=== PATIENT | female | born 1975 | race Caucasian/White ===

== ENCOUNTER 2024-09-11 08:57 | Emergency (ER) | payer OTHER, SELFPAY ==
[2024-09-11] VITALS (8 sets, daily range): BP systolic 101–143; BP diastolic 65–83; PULSE 57–88; RESP 11–19; TEMP 36.5–37.5; O2SAT 97–100; BMI 39.6
--- NOTE | 2024-09-11 08:58 | ECG_ITS ---
Test Reason : HEART RACING Blood Pressure : */* mmHG Vent. Rate : 164 BPM Atrial Rate : * BPM P-R Int : * ms QRS Dur : 78 ms QT Int : 260 ms P-R-T Axes : * 31 225 degrees QTcB Int : 429 ms Atrial fibrillation with rapid ventricular response Nonspecific ST and T wave abnormality Abnormal ECG No previous ECGs available Referred By: Rosie Edwards Electronically Signed By: ASIA RUANO
--- NOTE | 2024-09-11 09:07 | ED_ITS ---
HPI - General Adult General Chief complaint: Arrhythmia/Palpitations Stated complaint: Heart racing Time Seen by Provider: 09/11/24 09:37 Source: patient and family Mode of arrival: ambulatory Limitations: no limitations History of Present Illness ED Provider: DR. Caban HPI narrative: 49-year-old female otherwise healthy presented with 1 day of feeling palpitation, chest pounding, and difficulty breathing since early this morning patient had couple episodes of similar symptoms yesterday. Patient is healthy go to gym every other day do not smokes cigarettes, do not use drugs, not taking any anticoagulation, no history of any other comorbidity. Admitted to using edible marijuana only to help her to sleep, patient drink 2 coffees a day, declined any stress or anxiety. Family history father had a history of atrial fibrillation required cardioversion. Related Data Allergies Allergy/AdvReac Type Severity Reaction Status Date / Time No Known Allergies Allergy Verified 09/11/24 09:09 Review of Systems 2 Review of Systems: All other systems are reviewed and are negative Constitutional: Reports as per HPI and Reports no additional constitutional complaints Eyes: Reports as per HPI and Reports no additional eye complaints Reports system reviewed and no additional complaints, except as documented Cardiovascular: Reports as per HPI and Reports no additional cardiovascular complaints Respiratory: Reports as per HPI and Reports no additional respiratory complaints Gastrointestinal: Reports as per HPI and Reports no additional gastrointestinal complaints Genitourinary: Reports no additional female genitourinary complaints Musculoskeletal: Reports no additional musculoskeletal complaints Skin/Breast: Reports system reviewed and no additional complaints, except as docu Psychiatric: Reports no additional psychiatric complaints Endocrine: Reports no additional endocrine complaints Hematologic/Lymphatic: Reports no additional hematologic/lymphatic complaints Allergic/Immunologic: Reports no additional allergic/immunologic complaints Reports system reviewed and no additional complaints, except as documented and Reports Abnormal speech present [facility] Social History Social History Advance Directives: No Advance Directives Information Provided: No Do you have a plan to hurt others: No Plan Physical Exam ED Vital Signs: Vital Signs - 24 hr 09/11/24 09:06 09/11/24 09:38 Temperature 97.7 F Pulse Rate 88 87 Respiratory Rate 16 19 Blood Pressure 143/83 H 120/80 Pulse Oximetry 100 100 Oxygen Delivery Method Room Air Room Air BMI result Body Mass Index 39.6 Vital signs have been reviewed and appear to be correct. Blood pressure elevated. Heart rate normal. Respiratory rate normal. Temperature normal. Oxygen saturation normal. Appearance: Alert. Oriented X3. No acute distress. Head: Normal external exam. Normocephalic. Atraumatic. No Jensen signs noted. No raccoon eyes noted Eyes: PERRLA. EOMI. Conjunctiva and sclera normal. Eyelids normal. ENT: TM's Normal. Pharynx normal. Uvula midline. Moist mucous membranes. No trismus noted. No drooling noted. No muffled voice noted. Neck: Normal inspection. Neck supple. FROM. No adenopathy. Thyroid Normal. No meningeal signs. No neck mass noted. CVS: Normal heart rate and rhythm. Heart sound normal. No murmurs noted. Pulses normal throughout. Respiratory: No respiratory distress. Painless inspiration. Breath sounds normal. No wheezes/rales/rhonchi noted. Chest nontender. No accessory muscle usage noted or decreased air movement noted. Abdomen: Soft and nontender. Bowel sounds normal in all 4 quadrants. No distention noted. No organomegaly noted. No visible injury noted. Back: No CVA tenderness. Full range of motion noted. Skin: Skin warm and dry. Normal skin color. Normal skin turgor. No rashes/lesions/lacerations noted. Extremities: No lower extremity edema. Extremities exhibit normal range of motion. Extremities nontender. Neuro: Oriented X 3. Cranial nerve exam: II-XII are grossly intact No motor deficit. No sensory deficit. Reflexes normal. Course Course Course Narrative: RME performed by Rosie Edwards PA-C. Patient is a 49 year old assigned female at presenting to the emergency department with fluttering heart beast. Patient states over the last day she has had intermittent fluttering of her heart. Detailed physical exam and review of systems are deferred to the orthotic/prosthetic clinician. EKG, labs, imaging, and swabs ordered. Patient placed back in the waiting room pending room availability and results. Reevaluation(s) Reevaluation #1: Patient presented with rapid atrial fibrillation that is spontaneously converted into a normal sinus rhythm. Time: 09:40 Reevaluation #2: 49-year-old female presented initially with atrial fibrillation with rapid ventricular response in the 160s, that she spontaneously converted into normal sinus rhythm, no chest pain, no shortness of breath, unremarkable labs. Patient was instructed to avoid drinking coffee or hot chocolate. Patient was given Dr. Shultz information to follow-up as an outpatient. [id number] SCORE IS 0 no indication for anticoagulation. Time: 13:00 Medical Decision Making Differential Diagnosis Differential Diagnoses: The differential diagnosis associated with the presentation includes (Atrial fibrillation, SVT, electrolyte derangement, severe anemia, ACS.) Admission/Observation Consideration of admission/observation: Escalation of care including admission/observation considered Lab Data MDM Lab Attestation statement: I reviewed the patient's lab results. 09/11/24 09:33 09/11/24 09:33 Labs: Lab Results 09/11/24 Range/Units 09:33 WBC 6.7 (4.8-10.8) X10*3/uL RBC 4.73 (4.20-5.50) X10*6/uL Hgb 14.4 (12.0-16.0) g/dl Hct 43.9 (37.0-47.0) % MCV 92.8 (80.0-98.0) fL MCH 30.4 (27.0-33.0) pg MCHC 32.8 (31.0-35.0) g/dl RDW 13.0 (11.0-16.0) % Plt Count 279 (160-400) X10*3/uL MPV 10.4 (9.4-12.3) fL Immature Gran % (Auto) 0.4 (0.0-0.4) % Neut % (Auto) 45.2 (45-73) % Lymph % (Auto) 41.5 H (20-40) % Curry % (Auto) 7.4 (2-11) % Eos % (Auto) 4.8 H (0-4) % Baso % (Auto) 0.7 (0-2) % Lymph # (Auto) 2.8 (1.2-4.9) X10*3/uL Curry # (Auto) 0.5 (0.1-1.2) X10*3/uL Eos # (Auto) 0.3 (0.0-0.4) X10*3/uL Baso # (Auto) 0.1 (0.0-0.2) X10*3/uL Abs Immat Gran (auto) 0.03 (0.00-0.03) X10*3/uL Absolute Neuts (auto) 3.0 (2.0-8.3) x10*3/uL Absolute Nucleated RBC 0.000 (0.0-0.012) X10*3/uL Nucleated RBC % (auto) 0.0 (0.0-0.2) /100WBC PT 11.8 (10.9-12.4) SEC INR 1.0 (0.9-1.1) APTT 28.9 (26.0-36.8) SEC Sodium 143 (135-145) mmol/L Potassium 3.9 (3.3-5.1) mmol/L Chloride 107 (96-108) mmol/L Carbon Dioxide 26 (22-29) mmol/L Anion Gap 14 (12-20) BUN 13 (9-16) mg/dL Creatinine 0.84 (0.5-1.4) mg/dL Estim Creat Clear Calc 94.1 Estimated GFR > 60 Random Glucose 101 (60-115) mg/dL Calcium 9.2 (8.4-10.2) mg/dL Magnesium 1.9 (1.6-2.6) mg/dL Total Bilirubin 0.5 (0.0-1.0) mg/dL AST 20 (5-31) U/L ALT 14 (0-31) U/L Alkaline Phosphatase 57 (39-117) U/L Troponin I High Sens 10.4 (<3.5-17.0) ng/L Total Protein 7.3 (6.5-8.0) g/dL Albumin 3.8 (3.5-5.0) g/dL Influenza Type A (PCR) NEGATIVE (Negative) Influenza Type B (PCR) NEGATIVE (Negative) RSV RNA Qual (PCR) NEGATIVE (Negative) SARS-CoV-2 RNA (RT-PCR) NEGATIVE (Negative) Independent Interpretation I performed an independent interpretation of an: EKG (1. Atrial fibrillation with a rapid ventricular response, narrow complex QRS diffuse ST depression. ) Interpretation: EKG 2. Normal sinus rhythm at 83 beats per minutes, normal intervals, improvement of the abnormal ST-T changes. Discharge Plan Discharge Clinical Impression: Atrial fibrillation Patient Disposition: Still a Patient Instructions: A-fib (Atrial Fibrillation) (ED) Referrals: Surjit Zepeda MD [Primary Care Provider] - Kingston Shultz MD [Physician] - Print Language: Citizen [place]
--- NOTE | 2024-09-11 09:30 | ECG_ITS ---
Test Reason : TACHY Blood Pressure : */* mmHG Vent. Rate : 83 BPM Atrial Rate : 83 BPM P-R Int : 128 ms QRS Dur : 80 ms QT Int : 370 ms P-R-T Axes : 57 18 28 degrees QTcB Int : 434 ms Normal sinus rhythm Normal ECG When compared with ECG of 11-Sep-2024 09:01, Sinus rhythm has replaced Atrial fibrillation Vent. rate has decreased by [address] and T wave abnormality improved Referred By: Jose Guadalupe Caban Electronically Signed By: ASIA RUANO
[2024-09-11 09:38] LABS: MANUAL DIFF FLAG NO
[2024-09-11 09:55] LABS: Alanine Aminotransferase 14 U/L (0-31); Albumin Level 3.8 g/dL (3.5-5.0); Alkaline Phosphatase 57 U/L (39-117); Anion Gap 14 (12-20); Aspartate Amino Transferase 20 U/L (5-31); Bilirubin Total 0.5 mg/dL (0.0-1.0); Blood Urea Nitrogen 13 mg/dL (9-16); Calcium 9.2 mg/dL (8.4-10.2); Carbon Dioxide 26 mmol/L (22-29); Chloride 107 mmol/L (96-108); Creatinine Clr Calc Pharmacy 94.1; Estimated Glomerular Filt Rate > 60; Glucose Random 101 mg/dL (60-115); Magnesium 1.9 mg/dL (1.6-2.6); Potassium 3.9 mmol/L (3.3-5.1); Sodium 143 mmol/L (135-145); Total Protein 7.3 g/dL (6.5-8.0)
[2024-09-11 09:59] LABS: Basophils Absolute Auto 0.1 X10*3/uL (0.0-0.2); Basophils Percent Auto 0.7 % (0-2); Eosinophils Absolute Auto 0.3 X10*3/uL (0.0-0.4); Eosinophils Percent Auto 4.8 % (0-4); Hematocrit 43.9 % (37.0-47.0); Hemoglobin 14.4 g/dl (12.0-16.0); Imm Gran Abs Auto 0.03 X10*3/uL (0.00-0.03); Imm Gran Pct Auto 0.4 % (0.0-0.4); Lymphocytes Absolute Auto 2.8 X10*3/uL (1.2-4.9); Lymphocytes Percent Auto 41.5 % (20-40); Mean Corpuscular HGB Conc 32.8 g/dl (31.0-35.0); Mean Corpuscular Hemoglobin 30.4 pg (27.0-33.0); Mean Corpuscular Volume 92.8 fL (80.0-98.0); Mean Platelet Volume 10.4 fL (9.4-12.3); Monocytes Absolute Auto 0.5 X10*3/uL (0.1-1.2); Monocytes Percent Auto 7.4 % (2-11); Neutrophils Percent Auto 45.2 % (45-73); Platelet Count 279 X10*3/uL (160-400); Red Blood Count 4.73 X10*6/uL (4.20-5.50); White Blood Count 6.7 X10*3/uL (4.8-10.8)
[2024-09-11 10:02] LABS: Troponin-I High Sensitivity 10.4 ng/L (<3.5-17.0)
[2024-09-11 10:05] LABS: Prothrombin Time 11.8 SEC (10.9-12.4)
[2024-09-11 10:08] LABS: Partial Thromboplastin Time 28.9 SEC (26.0-36.8)
[2024-09-11 10:17] LABS: Influenza A PCR NEGATIVE (Negative); Influenza B PCR NEGATIVE (Negative); Resp Syncy Virus RNA Qual PCR NEGATIVE (Negative); SARS COV2 PCR INHOUSE NEGATIVE (Negative)
--- NOTE | 2024-09-11 11:56 | PC.NURSE ---
pt resting quietly on exam room stretcher- pt oob to BR, no complaints of distress with ambulation- pt returned to exam room placed on cardiac care nurse, HR 67 NSR. no c/o pain, call velarde within reach
[2024-09-11 13:16] LABS: Troponin-I High Sensitivity 12.1 ng/L (<3.5-17.0)
--- NOTE | 2024-09-11 16:27 | MHC.EDTECH ---
charted vitals by this cmt on wrong PT
== END 2024-09-11 18:11 | disposition home or self-care (01) ==
PROVIDERS: Physician Assistant Medical; Emergency Provider Emergency Medicine; PCP Family Medicine
DX: I48.91 Unspecified atrial fibrillation (principal); I49.9 Cardiac arrhythmia, unspecified; R00.2 Palpitations; R06.02 Shortness of breath; F12.90 Cannabis use, unspecified, uncomplicated; Z03.818 Encounter for observation for suspected exposure to other biological agents ruled out; Z79.899 Other long term (current) drug therapy
CPT/HCPCS: 0241U; 36415; 80053; 83735; 84484; 85025; 85610; 85730; 93005; 99283; 99285

== ENCOUNTER → 2024-09-11 08:58 | Outpatient (BNV) | payer OTHER, SELFPAY | PROVIDERS: Emergency Provider Emergency Medicine; PCP Family Medicine; Visit Provider Internal Medicine | DX: I48.91 Unspecified atrial fibrillation (principal); R00.0 Tachycardia, unspecified | CPT/HCPCS: 93010 ==

== ENCOUNTER 2024-09-30 13:20 | Outpatient (AMB) | payer OTHER, SELFPAY ==
[2024-09-30 13:27] VITALS: BP 140/80; PULSE 64; BMI 40.0
--- NOTE | 2024-09-30 13:27 | MHC.OFFVIS ---
Vital Signs 09/30/24 13:27 Height 5 ft 3 in Weight 225 lb 12.054 oz BMI 40.0 BP 140/80 H Blood Pressure Location Rt brachial Position Sitting Pulse 64 Pulse Source Pulse Oximeter Intake Visit Reasons: [employer] [facility] Followup AFIB Intake Note: Pt states feeling okay. No concerns Medical Office Technology Instructor Required: No Accompanied by: Self / Same As Patient Allergies No Known Allergies Allergy (Verified 09/11/24 09:09) Medication List - Last Reconciled 09/30/24 by Rick Raymond NP budesonide-formoterol 160-4.5 mcg/actuation (Symbicort) 2 puffs inhalation BID metoprolol tartrate 12.5 mg (1/2 x 25 mg) PO DAILY HPI Comments Details: This is a 49-year-old female patient presenting for an evaluation of a new onset AFib. Patient has history of asthma and obesity but no known coronary artery disease, ischemic heart disease, or cardiomyopathy. The patient was recently seen in the emergency room for after experiencing palpitations, chest pounding, difficulty breathing for a duration of 24 hours. She reports that a few hours before these symptoms began she also had some lightheadedness. The patient denies any smoking and uses alcohol occasionally. She admits to using edible marijuana for sleep but does not use any other recreational drugs. In the ER, she was diagnosed with AFib with a RVR but she spontaneously converted to normal sinus rhythm. Today, the patient reports feeling much better and has not experienced any recurrences of those symptoms. Patient does note that she has been having some chest pressure midsternal mostly in the evenings and at rest but none with exertion. She denies any exertional shortness of breath, chest pain, palpitations, dizziness, fatigue, orthopnea, PND, leg edema, presyncope, or syncope. She does note a family history of AFib and her father has had multiple cardioversions for this. The patient is active and works out 3 times a week engaging in HIIT exercise and reports no symptoms during or after these exercises. [facility] Family History Father HTN (hypertension) DM2 (diabetes mellitus, type 2) Heart problem Mother Myositis Social History Alcohol intake: current Alcohol intake frequency: holidays/special occasions only Patient Tobacco Use Status: Former Tobacco user Review of Systems Const Denies chills, Denies daytime sleepiness, Denies fatigue, Denies fever(s), Denies poor appetite, Denies snoring, Denies stops breathing during sleep, Denies weakness, Denies weight gain and Denies weight loss Eyes Denies loss of vision ENT Denies dizziness and Denies hearing loss Card Denies chest pain, Denies irregular heart rhythm, Denies claudication, Denies leg edema, Denies lightheadedness, Denies palpitations, Denies dyspnea on exertion and Denies orthopnea Resp Denies cough, Denies excessive phlegm production, Denies dyspnea on exertion, Denies snoring and Denies wheezing GI Denies abdominal pain, Denies hematochezia, Denies change in bowel habits, Denies nausea and Denies vomiting Denies urinary frequency and Denies dysuria Musc Denies arthralgias, Denies muscle weakness, Denies numbness and Denies other Skin/Breast Denies nail changes and Denies rash Neuro Denies Abnormal speech present, Denies dizziness, Denies loss of vision, Denies memory loss, Denies numbness and Denies weakness Psych Denies depression and Denies memory loss Endo Denies fatigue and Denies palpitations Fawad/Lymph Denies easy bruising Aller/Immun Denies wheezing Physical Exam Vital Signs: Last Vital Signs Pulse 64 09/30/24 13:27 BP 138/80 09/30/24 13:27 BMI result Body Mass Index 40.0 Const General: cooperative, healthy appearing, comfortable and no acute distress Orientation/consciousness: patient oriented x3 HEENT Head: Yes normal to inspection Neck Neck: Yes normal visual inspection, Yes trachea midline and Yes supple Chest Chest palpation & inspection: normal inspection of the chest Resp Effort & Inspection: normal respiratory effort Auscultation: clear to auscultation bilaterally, no crackles, no rales, no rhonchi and no wheezes Cardio Jugular venous distension: no JVD Palpation: normal PMI Rate: regular rate Rhythm: regular rhythm Heart sounds: S1 normal heart sound present, S2 normal heart sound present, no click, no gallops, no murmurs and no rubs Peripheral pulses: Peripheral pulses 2+ throughout GI Inspection: Yes normal to inspection Palpation (GI): Soft to palpation Auscultation: normal bowel sounds Skin General skin exam: no rashes or lesions noted Neuro General: patient oriented x3 Speech: No Abnormal speech present Extrem General: Yes normal to inspection, No no pedal edema and No calf tenderness Psych Appearance: grossly normal Mental Status: mental status grossly normal Speech and movement: Normal speech and movement present Office Procedures EKG Details: EKG today showed underlying normal sinus rhythm, rate 60 beats per minute, [place], [place]. [id number], Complete Assessment & Plan Assessment & Plan (1) Paroxysmal A-fib: Code(s): I48.0 - Paroxysmal atrial fibrillation Category: Medical (2) Atypical chest pain: Code(s): R07.89 - Other chest pain Category: Medical Plan EKG today was normal sinus rhythm. Blood pressure on the higher side. Ideally, blood pressure goal less than 130/80. Advised to continue monitoring at home and keeping a log. We will start patient on small dose of metoprolol for rate control as well as blood pressure. STOPBANG score of 3. We will get a sleep study test to rule out obstructive sleep apnea which could be a contributing factor for her AFib. We will also get a 3 day Holter monitor to assess for recurrence of AFib as well as the burden. Bob Vasc score of 0, therefore no anticoagulation needed at this time. For the atypical symptoms of chest pain, we will pursue a treadmill stress test to look for any ischemic changes. We will also get an echocardiogram to evaluate for underlying structural heart disease including potential decrease in heart function, wall motion abnormalities, valvular abnormalities. Advised heart healthy diet, regular exercise, losing weight, aggressive management of vascular risk factors, and limiting caffeinated beverages. Follow-up in the office after completion of these tests. In the interim, patient will call the office with any concerns or change in symptoms. This note was generated using voice recognition software. While every effort has been made to ensure accuracy and proper news analyst, there may be occasional errors that could affect the content or meaning of the described symptoms. Orders: Orders CA echo transthoracic complete Today I48.0 - Paroxysmal atrial fibrillation ECG 3 day holter monitor Today I48.0 - Paroxysmal atrial fibrillation AMB EKG-In Office Today I48.0 - Paroxysmal atrial fibrillation CA stress test Today R07.89 - Other chest pain RT home sleep study Today G47.33 - Obstructive sleep apnea (adult) (pediatric) Medications: New metoprolol tartrate 12.5 mg (1/2 x 25 mg) PO DAILY 90 tabs 1RF Coding Level of Care Code New Pt Level 4 (37319) Complex EM visit Add On G2211 Diagnoses Paroxysmal A-fib I48.0 Atypical chest pain R07.89 CPT Codes EKG - CPT: 41624-[id number], Complete ([id number]) Time Spent (min) 32 Comment Time spent in reviewing the chart, test results, assessment, counseling and documentation.
--- OUTSIDE RECORDS SUMMARY | 2024-09-30 14:55 | XMS_ITS | Data Portability ---
Author Organization [facility], [facility] Address [address] [place] [address] Care Team Providers Care Injection Molding Supervisor Name Role Phone [facility] LESLY WOODARD OTHER SAEED REYNA Recreation Superintendent NICOLE KAPLAN Primary Care Provider Assessment Encounter Date Assessment Date Assessment LastModified by Organization Details LastModified Time 11/12/2023 11/12/2023 Visit 3 of 8 Re-eval Due: 11/18/23 Next visit : Short Term Goals: In 4 weeks, patient will: 1. Reach into a high cabinet with right shoulder pain no greater than 3/10. 2. Don and doff a jacket with right shoulder pain no greater than 3/10. 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 Demonstrate pain free active, passive, and resisted motions of the right shoulder 2. Lift and carry 20 pounds without right shoulder pain. 4. Demonstrate independence with comprehensive HEP. Subjective : arm is about the same first thing in the morning is still excruciating it feels like a contracture and this muscle is just closing up Objective : -TTP R AC joint, coracoid process, pec minor, pec major near medial clavicle, brachialis, deltoid Therex : -reviewed HEP w/ pt, updated as below. -pec stretch w/ arm at 120 abd Neuromuscular Re-ed : Manual Therapy : -STM and gentle TPR R pec minor, pec major near medial clavicle, brachialis, deltoid -gentle CFM R deltoid near insertion, brachialis -GR I & II inferior glide R AC joint - pt reports pain, d/c -G-H inferior glide - relieves R pectoral pain, gradual increase in R UT pain Assessment : Patient continues to experience pain in her R shoulder, upper arm, and pectoral region; HEP has produced minimal effect thus far. Patient is concerned for bony injury despite atraumatic onset. Counseled pt that her symptoms may be calcific tendinopathy or pectoral strain. Requested x-ray from patient's PCP. Patient states that she will RTC if indicated by her PCP. Plan : follow up as needed Access Code: [email or web address] URL: [email or web address] Date: 11/12/2023 Prepared by: Marie Amanda'Tristen Exercises - Seated Shoulder Inferior Stephenson - 3 x daily - 7 x weekly - 1 sets - 3 reps - 15 hold - Isometric Shoulder Abduction at Wall - 3 x daily - 7 x weekly - 1 sets - 5 reps - 15 hold - Standing Isometric Shoulder External Rotation with Doorway - 3 x daily - 7 x weekly - 1 sets - 5 reps - 15 hold - Bicep Stretch at Counter - 3 x daily - 7 x weekly - 1 sets - 3 reps - 15 sec hold - Standing Shoulder and Trunk Flexion at Table - 1-3 x daily - 7 x weekly - 1 sets - 10 reps - 5 sec hold - Seated Shoulder External Rotation AAROM with Cane and Hand in Neutral - 1-3 x daily - 7 x weekly - 1 sets - 10 reps - 5 sec hold - Seated Shoulder External Rotation PROM on Table - 1-3 x daily - 7 x weekly - 1 sets - 10 reps - 5 sec hold - Doorway Pec Stretch at 120 Elevation with Arm Straight - 1-3 x daily - 7 x weekly - 1 sets - 3 reps - 15 hold [email or web address] Not available 11/13/2023 17:01:53 04/12/2024 04/12/2024 RTC 1 yr CEE or prn [email or web address] Not available 04/12/2024 10:43:05 Plan of Treatment Reminders Order Date Submit Date Provider Last Modified By Organization Details Last Modified Time Details Appointments Mammog yovany, Screen ing 2024 01:30P M [facility] Mammography Not available Not available Not available Lyubov ss Visit 30 2024 03:15P M Nicole Kaplan, DNP, AGRICULTURAL ADVISER-BC Not available Not available Not available Marianela robbins Eye Exam, 20 Min 2024 09:50A M Maritza Reyna, OD Not available Not available Not available Lab TSH, serum or plasma 2024 025 [facility], [address] [place] [address], [id number], 09/27/2024 12:33:45 T4, free, serum 2024 025 [facility], [address] [place] [address], [id number], 09/27/2024 12:33:44 erythr ocyte sedime ntatio n rate by agustina gren method 2023 024 [facility], [address] [place] [address], [id number], 09/27/2024 11:08:35 BRANDIN (antin uclear antibo dies) screen , ifa, serum 2023 024 [facility], [address] [place] [address], [id number], 09/30/2024 10:58:42 rf (rheum atoid factor ), igm, serum 2023 024 [facility], [address] [place] [address], [id number], 09/27/2024 08:03:00 Referral orthop joseluis shaw referr al - Right upper bicep severe pain and decrea sed ROM, rope like sensat ion in bicep , will get u/s- please eval and advise . Pain since Aug 272023 024 CAROLYN Castle DO Ms, [address] [place], [id number], 03/15/2024 09:59:26 Procedures colono scopy proced ure (PROC) - Please book the pt at [facility] gilmer Porrasit al as the patien t has an outsta nding balanc e. If the patien t has any questi ons please have them call [facility] rhona rodriguez dept. Thank you [email or web address] [facility], [address] [facility], [place], [address], 07/27/2024 09:51:10 Surgeries None record ed. Imaging MAMMO, screen ing, tomosy nthesi s, bilate ral - 2nd Look Consul t/Diag Mammo/ US Breast /Guide d Asp/Br east Bx/Cli p Placem ent, as clinic ally indica dc. 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 and anteri or mid and lower rib tender ness x2 weeks 2024 025 [facility] (Imaging), [address], [place], [id number], 07/26/2024 16:18:20 US, duplex , venous , upper extrem ity - RIGHT upper extrem ity, bicep rope like palpat ed tender ness 2023 024 [facility] (Imaging), [address], [place], [id number], 02/19/2024 14:21:23 Medication Orders predni sone 10 mg tablet 2024 025 [id number], [address] [facility], [place], [place], [id number], 09/12/2024 14:26:34 Patient TargetsNo targets recorded. Patient Instructions Encounter Date Encounter Id Patient Instructions Last Modified By Organization Details Last Modified Time 07/26/2024 [id number] After a discussi on of treatment options, which included consideration of best practices and patient preferences, the??above treatment plan and objectives were adopted New medication was discussed with patient including risks, benefits ,possible and expected side effects. Patient understands and is willing to begin medication as prescribed. [email or web address] Not available 07/26/2024 16:03:41 Reason for Referral Orthopedic Surgeon Referral for Pain in right arm Right upper bicep severe pain and decreased ROM, rope like sensation in bicep , will get u/s- please eval and advise. Pain since Aug Referring Physician: Nicole Kaplan, Family Medicine, Encounter Date: 02/19/2024 Results Created Date Observation Date Name Description Value Unit Range Abnormal Flag Note LastModifiedBy Organization Detail LastModifiedTime 02/19/20 24 02/19/2024 US, duple x, venou s, upper extre mity CLINIC AL HISTOR Y: Right arm pain TECHNI QUE: 2D sonogr aphy of the deep and select superf icial veins of the right upper extrem ity and neck perfor med withou t and with compre ssion where applic able. Color and spectr al Dopple r also perfor med. COMPAR PAULINO: None. FINDIN GS: Superf icial veins: The basili c and cephal ic veins are compre ssible and demons trate normal augmen tation . Wavefo crow are normal . Deep veins: Flow is noted in the brachi al, axilla ry, subcla vian and right web design intern al jugula r veins. The brachi al vein is compre ssible and demons trates normal augmen tation . Wavefo crow are normal . IMPRES LORI: No eviden ce of upper extrem ity deep vein thromb osis. No eviden ce of cephal ic or basili c vein thromb osis. Readin g Physic jag: Kenia Garcia ms [address] (Imaging) [address], [place], [address], 03/07/2024 08:25:27 07/26/19 25 07/26/2024 XR, ribs, unila teral CLINIC AL HISTOR Y: Pain. TECHNI QUE: At least [address] views of the right ribs are obtain ed. COMPAR PAULINO: None. FINDIN GS: No fractu re or soft tissue abnorm ality of the ribs is seen. The lungs and pleura l spaces are clear. IMPRES LORI: No acute bony abnorm ality. Readin g Physic jag: Zev Marcus [facility] (Imaging) [address] , [place], [id number], 07/27/2024 10:11:24 Result Notes None recorded. Problems Name Problem SNOMED Code Status Onset Date Resolution Date Notes Provider Name and Address Organization Details Recorded Time Pyelonep hritis 80736364 Active Analisa Thorne [place] null, [facility] 3 12:07:04 Conjunct ivitis 1430184 Active Val Craig NP [address] [place] [address], , [facility] 5 12:50:39 Elevated blood-pr essure reading without diagnosi s of hyperten lori 365708685 Active Tayla Blount NP [address] [place] [address], [id number], [facility] 4 12:02:01 Obesity 459830580 Active Tayla Blount NP [address] [place] [address], , [facility] 4 17:13:37 Seasonal allergic conjunct ivitis 088374065 Active Tayla Blount NP [address] [place] [address], , [facility] 4 11:35:38 Eczema 33515167 Active Talya Blount NP [address] [place] [address], , [facility] 4 11:35:38 Narrow angle 774469015 Active 2018 Maritza Reyna, OD [address] [place] [address], , [facility] 9 14:28:20 Atypical squamous cells of undeterm ined signific ance Active 2021, repeat 2024 Nicole Kaplan, DNP, AGRICULTURAL ADVISER-BC [address] [place] [address], [phone], [facility] 2 13:51:07 Atrial fibrilla tion 38353465 Active 2024 onset 09/11/24 DON LAO NP [address] [place] [address], [phone], [facility] 5 08:11:16 Mixed hyperlip idemia 284693949 Completed 05/26/2011 Not Available [facility] 3 03:09:12 Acute sinusiti s 08497769 Completed 05/26/2011 Not Available [facility] 3 03:09:12 Atopic dermatit is 07019421 Active Tayla Blount NP [address] [place], [address], [facility] 4 14:32:14 Contact dermatit is due to plants, except food Completed 06/08/2013 Not Available [facility] 3 02:02:49 Acute upper respirat ory infectio n 09347578 Completed 05/26/2011 Not Available [facility] 3 03:09:12 Conjunct ivitis 0119965 Completed 06/08/2013 Not Available [facility] 3 02:03:08 Conjunct ivitis 3902766 Completed 05/26/2011 Not Available [facility] 3 03:09:12 Influenz a 0627191 Completed 05/26/2011 Not Available [facility] 3 03:34:33 Acute asthma 818473633 Completed 07/18/2019 Susie Crockett PA-C [address] [place] [address], [address], [facility] 9 14:05:00 Acute bronchit is 12336887 Completed 06/08/2013 Not Available [facility] 3 02:01:35 Asthma 953828995 Active Tayla Blount NP [address] [place] [address], [phone], [facility] 4 17:13:37 Problem Notes None recorded. Procedures Surgical History Date Name Laterality Status Provider Name and Address Organization Details Recorded Time 024 Refraction completed Maritza Reyan OD [address] [place], [address], [facility] 04/12/2024 11:05:42 024 47435: Therapeutic Exercise completed Marie Yip, PT [address] [place], [address], [facility] 11/13/2023 17:01:57 024 48795: Manual Therapy completed Marie Yip, PT [address] [place], [address], [facility] 11/13/2023 17:02:03 024 06070: Therapeutic Exercise completed Marie Yip, PT [address] [place], [address], [facility] 10/27/2023 14:04:05 024 Smoking Cessation Counselling completed Marie Yip, PT [address] [place], [address], [facility] 10/19/2023 18:41:56 024 Physical Activity Counselling completed Marie Yip, PT [address] [place], [address], [facility] 10/19/2023 18:41:56 024 22796: PT Eval Low Complexity completed Marie Yip, PT [address] [place], [address], [facility] 10/19/2023 18:41:56 024 Treatment and Advice completed Marie Yip, PT [address] [place], [address], [facility] 10/20/2023 10:26:27 023 Gonioscopy completed Maritza Reyna, OD [address] [place], [address], [facility] 04/10/2023 10:30:18 023 Refraction completed Maritza Reyna, OD [address] [place], [address], [facility] 04/10/2023 09:31:53 022 Shave Biopsy AG completed Nicole Kaplan DNP, [address], [address], [facility] 04/22/2022 14:50:18 022 Alcohol use screening completed Nicole Kaplan DNP, [address], [address], [facility] 03/21/2022 14:33:23 022 Cardiovascular disease risk reduction counseling completed Nicole Kaplan DNP, [address], [address], [facility] 03/21/2022 14:33:27 019 Gonioscopy completed Maritza Reyna OD [address] [place] [address], [address], [facility] 11/30/2018 14:30:28 019 Refraction completed Bob Jorge [facility] 11/30/2018 14:05:35 019 Asthma Control Test (12 + years old) completed Karissa Braden [facility] 08/04/2018 09:12:27 019 POC Flu Testing completed Talisha Simms MA [facility] 07/25/2018 11:49:19 018 Asthma Control Test (12 + years old) completed Em Kapoor RN [facility] 01/11/2018 09:06:25 018 Asthma Control Test (12 + years old) completed Jo Ann Abdi [facility] 07/27/2017 08:31:34 017 Gastric bypass for obesity completed Tayla Blount NP [address] [place], [address], [facility] 07/27/2017 08:43:31 017 Nebulizer Tx completed RAIN Morrison [address] [place] [address], [address], [facility] 05/12/2017 11:30:27 017 Asthma Control Test (12 + years old) completed Jo Ann Abdi [facility] 01/05/2017 08:14:25 017 POC Flu Testing completed Talisha Alicia LPN [facility] 11/07/2016 08:32:53 016 Asthma Control Test (12 + years old) completed Jo Ann Abdi [facility] 07/07/2016 08:26:01 016 Asthma Control Test (12 + years old) completed Jo Ann Abdi [facility] 12/31/2015 09:09:49 014 Asthma Control Test (12 + years old) completed Mary Jane Saenz [facility] 01/17/2014 15:57:20 013 Asthma Control Test (12 + years old) completed Karissa Cormier [facility] 11/09/2012 15:10:24 013 Asthma Control Test (12 + years old) completed Karissa Cormier [facility] 10/12/2012 15:54:47 009 Sinus Surgery completed Not Available [facility] 2010 06:06:16 009 Cholecystectomy completed Not Available [facility] 05/20 06:06:16 Imaging Results Imaging Date Name Status LastModified by Organiz ation Details LastModified Time 02/19/2024 US, duplex, venous, upper extremity completed [address] (Imaging) [address] [place], [address], 03/07/2024 08:25:27 07/26/2024 XR, ribs, unilateral completed [facility] (Imaging) [address] [place], [address], 07/27/2024 10:11:24 Procedure Notes None recorded. Medical Equipment None Reported. Allergies No known drug allergies Medications Name Sig Start Date Stop Date Status Note LastModified by Organization Details LastModified Time symbicort 160-4.5 mcg/act aero 07/07 completed Not Available Not Available Not Available Singulair 10 mg tablet Take 1 tablet every day by oral route. 07/07 completed Not Available Not Available Not Available cyclobenza kita 10 mg tablet 09/12 completed Not Available Not Available Not Available amoxicilli n 500 mg capsule Take 1 capsule 3 times a day by oral route for 14 days. 09/18 completed Not Available Not Available Not Available azelastine 0.05 % eye drops INSTILL 1 DROP INTO AFFECTED EYE(S) BY OPHTHALM IC ROUTE 2 TIMES PER DAY 07/26 completed Not Available Not Available Not Available prednisone 10 mg tablet Take 6 tablets daily for 4 days, then decrease by one tablet daily til gone. 09/12 completed 09/12/19 25- not taking per pt TR/RMA Not Available Not Available Not Available doxycyclin e hyclate 100 mg capsule TAKE 1 CAPSULE BY MOUTH TWICE DAILY FOR 10 DAYS 12/19 completed not taking 12/19/22 Not Available Not Available Not Available azithromyc in 250 mg tablet 2 tabs po today, then 1 daily x4days active Not Available Not Available No t Available ibuprofen 800 mg tablet 07/18 completed Not Available Not Available Not Available prednisone 20 mg tablet Take 1 tablet twice a day by oral route for 5 days. 03/22 completed Not Available Not Available Not Available metronidaz ole 500 mg tablet TAKE 1 TABLET BY MOUTH TWICE DAILY FOR 7 DAYS 07/27 completed Not Available Not Available Not Available fexofenadi ne 180 mg tablet TK 1 T PO QD 12/19 completed not taking 12/19/22 Not Available Not Available Not Available TobraDex 0.3 %-0.1 % eye ointment Apply 1 applicat ion every day by ophthalm ic route. 2010 active Not Available Not Available Not Avai lable Protopic 0.1 % topical ointment APPPLY TO RASH AROUND EYES AND MOUTH TWICE A DAY UNTIL CLEAR THEN NEEDED 07/26 completed Not Available Not Available Not Available prednisolo ne acetate 1 % eye drops,susp ension PLACE 1 DROP IN SURGICAL EYE THREE TIMES A DAY FOR 5 DAYS FOLLOWIN G LASER 07/26 completed pt not using 07/26/24 mp Not Available Not Available Not Available omeprazole 10 mg capsule,de layed release 07/07 completed TAKE 1 TWICE A DAY Not Available Not Available Not Available Polysporin (bacitraci n base) 500 unit-10,00 0 unit/gram eye ointment 3 times a day 2009 active Not Available Not Available Not Avai lable benzonatat e 100 mg capsule Take 1 capsule 3 times a day by oral route as needed. 07/27 completed Not Available Not Available Not Available Bleph-10 10 % eye drops 2 gtts affect eye(s) q2hrs while awake for first 24 hrs, then qid til one day after sx have cleared. 2013 active Not Available Not Available Not Avai lable erythromyc in 5 mg/gram (0.5 %) eye ointment PLACE A 1/4 TO 1/2 INCH RIBBON OF OINTMENT IN AFFECTED EYE(S) FOUR TIMES DAILY ONCE AFTER SYMPTOMS HAVE CLEARED 07/26 completed pt not using 07/26/24 mp Not Available Not Available Not Available oseltamivi r 75 mg capsule take 1 capsule by mouth twice a day 08/04 completed Not Available Not Available Not Available Cipro 500 mg tablet Take 1 tablet every 12 hours by oral route for 7 days. 07/16 completed Not Available Not Available Not Available polymyxin B sulfate 10,000 unit-trime thoprim 1 mg/mL eye drops Instill 1 drop into affected eye(s) by ophthalm ic route every 6 hours for 7-10 days 07/26 completed pt not using 1..25 mp Not Available Not Available Not Available Advair Diskus 250 mcg-50 mcg/dose powder for inhalation active take 1.00 puff bid Not Available Not Available Not Available Combivent 18 mcg-103 mcg/actuat ion aerosol inhaler active Not Available Not Available Not Available Advair Diskus 500 mcg-50 mcg/dose powder for inhalation Inhale 1 puff twice a day by inhalati on route. 2010 active Not Available Not Available Not Avai lable codeine 10 mg-guaifen esin 100 mg/5 mL oral liquid Take 10 mL every day by oral route at bedtime for 12 days. 09/16 completed Not Available Not Available Not Available fluticason e propionate 50 mcg/actuat ion nasal spray,susp ension instill 1 spray into each nostril once daily active Not Available Not Available No t Available doxycyclin e hyclate 100 mg tablet take 1 tablet by mouth twice a day for 7 days 12/18 completed Not Available Not Available Not Available naproxen 500 mg tablet TAKE 1 TABLET BY MOUTH TWICE DAILY WITH FOOD NEEDED 09/12 completed 09/12/24 , not taking, per pt TR/RMA Not Available Not Available Not Available diazepam 5 mg tablet TAKE 1 TABLET BY MOUTH EVERY 8 HOURS NEEDED FOR MUSCLE SPASMS 07/26 completed pt not taking 07/26/24 mp Not Available Not Available Not Available amoxicilli n 875 mg-potassi um clavulanat e 125 mg tablet take 1 tablet by mouth twice a day for 14 days 12/18 completed Not Available Not Available Not Available Ventolin HFA 90 mcg/actuat ion aerosol inhaler Inhale 2 puffs every 4 hours by inhalati on route as needed. active Not Available Not Available No t Available oxycodone 5 mg tablet 07/27 completed Not Available Not Available Not Available azithromyc in 500 mg tablet Take 1 tablet every day by oral route for 3 days. active Not Available Not Available No t Available Flovent HFA 220 mcg/actuat ion aerosol inhaler active Not Available Not Available Not Available Calcium 500 + D active Not Available Not Available Not Available Symbicort 160 mcg-4.5 mcg/actuat ion HFA aerosol inhaler INHALE 2 PUFFS BY MOUTH TWICE DAILY. RINSE MOUTH AFTER USE active Not Available Not Available No t Available multivitam in and minerals no.11-foli c acid 5 mg tablet Take 1 tablet every day by oral route. active Not Available Not Available No t Available Vitals Date Recorded Body height Body mass index (BMI) Body weight Heart rate Systolic blood pressure Diastolic blood pressure Provider Name and Address Organization Details Last Updated DateTime 4 162.56 cm 37.2 kg/m2 39065.5 4 g 73 /min 131 mm[Hg] 94 mm[Hg] Rosario Wise [facility] 4 10:49:30 Date Recorded Body height Body mass index (BMI) Body weight Heart rate Systolic blood pressure Diastolic blood pressure Provider Name and Address Organization Details Last Updated DateTime 5 162.56 cm 39 kg/m2 652565. 57 g 80 /min 132 mm[Hg] 90 mm[Hg] Analy Crum CMA [facility] 5 15:34:56 Date Recorded Body height Body mass index (BMI) Body weight Heart rate Systolic blood pressure Diastolic blood pressure Provider Name and Address Organization Details Last Updated DateTime 5 162.56 cm 39.1 kg/m2 809589. 06 g 64 /min 112 mm[Hg] 80 mm[Hg] Cynthia Peña [facility] 5 07:59:29 Social History Question Answer Notes LastModified by Organizat ion Details LastModified Time Tobacco Smoking Status Former Smoker QUIT 6 YRS AGO SMOKED 1-2 CIGARETTES A DAY Not Available [facility] 12/12/2010 02:08:38 Do You Have An Advance Directive? No [email or web address] Information not available 03/17/2014 What Is Your Level Of Alcohol Consumption? Occasional 1-2 Per Year 11/09/12-paco [email or web address] Information not available 11/09/2012 Do You Wear A Helmet When Biking? Yes [email or web address] Information not available 03/17/2014 What Is Your Level Of Caffeine Consumption? Occasional 2 Cups Per Day [email or web address] Information not available 03/17/2014 What Type Of Diet Are You Following? REGULAR 1300 Calories, PV Weight Loss Information not available 07/26/2014 Which Illicit Or Recreational Drugs Have You Used? Denies [email or web address] Information not available 05/11/2017 What Is Your Occupation? [employer], [employer], [employer] [facility] [employer] [facility] Information not available 05/08/2010 Have There Been Any Changes To Your Family Or Social Situation? No [email or web address] Information not available 03/21/2022 Are There Any Guns Present In Your Home? No [email or web address] Information not available 03/17/2014 Live Alone Or With Others? With Others Luc Live [employer]on -1 Daughter In College Information not available 09/04/2009 Patient Has Health Care Proxy Signed And In Chart No Information not available 03/17/2014 Marital Status Single Information not available 06/05/2011 Mosquito Repellent Used Routinely Yes [email or web address] Information not available 03/17/2014 What Was The Date Of Your Most Recent Tobacco Screening? 07/26/2024 [email or web address] Information not available 07/26/2024 How Many Children Do You Have? 3 Twin Girls 03/05/99, Boy 93 - Grandson 05/2017 [address] Information not available 01/17/2014 What Is Your Current Pack Years? 10packyears 1 Pack Year [email or web address] Information not available 03/21/2015 Do You Use Your Seat Belt Or Car Seat Routinely? Yes [email or web address] Information not available 03/21/2022 Seat Belts Used Routinely Yes [email or web address] Information not available 03/17/2014 Are You Sexually Active? Yes [email or web address] Information not available 03/17/2014 Smoke Alarm In Home Yes [email or web address] Information not available 03/17/2014 Do You Have Smoke And Carbon Monoxide Detectors In Your Home? Yes [email or web address] Information not available 03/21/2022 How Much Tobacco Do You Smoke? No Information not available 07/26/2014 General Stress Level Medium Information not available 03/17/2014 Do You Use Any Illicit Or Recreational Drugs? No [email or web address] Information not available 03/21/2022 Do You Use Sunscreen Routinely? Yes [email or web address] Information not available 03/17/2014 Sex: Unknown Functional Status Question Answer Note LastModified by Organization D etails LastModified Time What is your exercise level? Moderate Information not available 07/26/2014 Mental Status None recorded. Family History Relationship Description Onset Age of this Age Resolved Age Notes LastModified by Organization Details LastModified Time Father Diabetes mellitus 55 previo usly record ed as Diabet es Not available 07/26/2014 11:49:20 Father Hypertensive disorder previo usly record ed as Hypert ension Not available 07/26/2014 11:49:20 Father Obesity Not available 1 09/07/2015 08:46:17 Father Atrial fibrillation [email or web address] Not available 08:14:10 Mother Disorder of thyroid gland previo usly record ed as Thyroi d Diseas e Not available 07/26/2014 11:49:20 Mother Depressive disorder previo usly record ed as Depres lori Not available 07/26/2014 11:49:20 Mother Motor neuron disease 60 trying to get a dx Not available 08/04/2018 09:30:17 Son Obesity Not available 1 09/07/2015 08:46:17 Brother Suicide Not available 07/07/2016 08:59:14 Maternal Grandmother Myocardial infarction 50 [email or web address] Not available 01/2025 08:14:31 Notes:Myositis- mother, musc le wasting Medical History Condition Response Allergic Rhinitis Y Asthma Y eczema Y Gynecological History Statement/Question Response Current Control Method Partner Vas ectomy Obstetrics History GPAL:G 0 P 0 0 0 0 Immunizations Vaccine Type Date Status Note Provider Nam e and Address Organization Details Recorded Time Influenza, split virus, trivalent, preservative 1 completed Not Available [facility] 08/06/2019 02:18:13 Tdap 1 completed Not Available [facility] 08/06/2019 02:15:43 Influenza, split virus, trivalent, PF 3 completed Not Available [facility] 08/06/2019 02:18:58 Influenza, split virus, quadrivalent, PF 5 completed Not Available [facility] 08/06/2019 02:19:46 pneumococcal polysaccharide PPV23 5 completed Not Available [facility] 08/06/2019 02:19:48 Influenza, split virus, trivalent, preservative 2 completed Not Available [facility] 11/29/2020 17:00:18 Influenza, split virus, quadrivalent, PF 6 completed Not Available [facility] 08/06/2019 02:21:11 Influenza, split virus, quadrivalent, PF 9 completed Not Available [facility] 08/06/2019 02:28:44 Influenza, split virus, quadrivalent, PF 9 completed Not Available [facility] 08/06/2019 02:36:22 Influenza, split virus, quadrivalent, preservative 0 completed Not Available [facility] 11/29/2020 17:00:19 SARS-COV-2 (COVID-19) vaccine, UNSPECIFIED 1 completed Not Available [facility] 11/29/2020 17:00:19 SARS-COV-2 (COVID-19) vaccine, UNSPECIFIED 1 completed Not Available [facility] 11/29/2020 17:00:18 Td (adult), 2 Lf tetanus toxoid, preservative free, adsorbed 2 completed Nicole Kaplan DNP, AGRICULTURAL ADVISER-BC [address] [place], [address], [facility] 03/21/2022 14:32:35 Influenza, split virus, quadrivalent, PF 2 completed Nicole Kaplan DNP, AGRICULTURAL ADVISER-BC [address] [place], [address], [facility] 04/22/2022 16:56:09 Influenza, MDCK, quadrivalent, PF 3 completed Lorraine Luciano [facility] 05/07/2023 12:22:23 influenza, unspecified formulation 4 completed Sydnie Medrano, ENA [address] [place] [address], [phone], [facility] 07/26/2024 15:55:14 Past Encounters Encounter ID Performer Location Encounter Start Date Encounter Closed Date Diagnosis/Indication Diagnosis SNOMED-CT Code Diagnosis ICD10 Code Diagnosis Note [id number] [facility], OFFICE [address] [place] [address]28[address] 6 09/04/2009 10:45:09 09/06/2009 09:44:00 [id number] [facility], OFFICE [address] [place] [address]148[address]196 6 09/10/2009 15:21:05 09/12/2009 11:07:04 [id number] [facility], OFFICE [address] [place] [address]12[address]207 6 12/19/2009 09:36:25 12/26/2009 08:22:50 [id number] [facility], OFFICE [address] [place] [address] 24190-590 6 05/08/2010 08:27:02 05/13/2010 14:10:23 [id number] SHAHRAM, OFFICE [address] [place] [address] 6 08/14/2010 09:03:22 08/15/2010 13:41:20 [id number] [facility] [address] [place] [address] 08/15/2010 10:24:12 08/16/2010 13:51:23 [id number] [facility] [address] [place] [facility] [address] 09/26/2010 10:20:10 09/30/2010 10:49:43 [id number] [facility] [address] [place] [facility] [address] 11/14/2010 11:09:13 11/18/2010 15:45:14 [id number] , [facility], OFFICE [address] [place] [facility] [address] 12/03/2010 07:50:12 12/06/2010 13:13:18 [id number] , [facility], OFFICE [address] [facility] [facility] [address] 01/22/2011 10:27:03 01/22/2011 11:37:31 [id number] , [facility], OFFICE [address] [place] [facility] [address] 04/30/2011 09:08:29 04/30/2011 09:39:05 [id number] , [facility], OFFICE [address] [place] [address] 6 05/17/2011 13:13:11 05/17/2011 13:49:38 [id number] , [facility], OFFICE [address] [place] [address] 05/26/2011 15:16:15 05/26/2011 16:04:10 [id number] , [facility], OFFICE [address] [place] [facility] [address] 06/27/2011 11:05:12 06/27/2011 11:50:55 [id number] , [facility], OFFICE [address] [place] [facility] [address] 09/04/2011 15:31:01 09/04/2011 16:51:43 [id number] Radiology , C [address] [place] [facility] [address] 09/04/2011 16:04:49 09/09/2011 14:50:58 [id number] , [facility], OFFICE [address] [place] [address] 6 11/19/2011 15:53:19 11/19/2011 16:26:08 [id number] Radiology , [address] [address] 11/19/2011 16:26:52 11/20/2011 09:39:26 [id number] Renay Chemo , [facility], OFFICE [address] [place] [address] 04/07/2012 15:25:21 04/08/2012 16:06:35 [id number] Bong Lopez MD [facility], OFFICE [address] [place] [address] 07/31/2012 11:32:21 08/02/2012 13:37:30 [id number] Surjit Zepeda MD , [facility], OFFICE [address] [place] [address]23[address] 6 08/03/2012 15:28:15 08/03/2012 16:06:11 [id number] Daysi Banks [facility], OFFICE [address] [place] [address] 6 10/12/2012 15:36:50 10/12/2012 16:17:09 [id number] [facility], OFFICE [address] [place] [address]10[address] 6 11/09/2012 14:36:37 11/09/2012 16:06:00 [id number] Hortensia Coyle MA , [facility], OFFICE [address] [place] [address]9926[address] 6 02/04/2013 10:17:36 02/04/2013 10:56:17 [id number] Mer Wise , [facility], OFFICE [address] [place] [address]94[address] 6 04/14/2013 10:57:34 04/14/2013 11:51:00 Conjunctivitis [id number] Influenza vaccine needed [id number] Mer Wise , [facility], OFFICE [address] [place] [address] 07/09/2013 09:29:29 07/09/2013 10:08:32 Urinary tract infectious disease [id number] Patient instructed to push fluids, to follow up for persistent or worsening symptoms or fever or back pain. Pyelonephritis 78767249 increase fluids, rest- f/u if no improvemen t in 2 days- sooner any worsening- nausea/vom iting, fever [id number] COLLEEN Webster, [facility], OFFICE [address] [place] [address]74[address] 6 11/24/2013 13:57:16 11/24/2013 15:02:15 Conjunctivitis 1305597 [id number] Fely Aguayo , [facility], OFFICE [address] [place] [address]58[address] 6 01/17/2014 15:41:05 01/17/2014 16:29:26 Adult health examination [id number] see Risk Assessment and Lifestyle Change Counseling section above Asthma [id number] PERSIST ENT (Mild/Mod/ Severe) Based on history, physical assessment and peak flow the patient's asthma in Not in control. See orders for adjustment in plan. The asthma action plan has been discussed. The patient verbalizes understand ing of medication use. The patient is in agreement with this plan Elevated blood-pressure reading without diagnosis of hypertension [id number] Obesity 358535169 [id number] Tayla Blount NP , [facility], OFFICE [address] [place] [address] 6 01/24/2014 11:24:34 01/24/2014 12:02:59 Elevated blood-pressure reading without diagnosis of hypertension [id number] COLLEEN Rick, [facility], OFFICE [address] [place] [address] 6 03/17/2014 10:51:15 03/17/2014 11:31:24 Seasonal allergic conjunctivitis 839267730 Eczema 79561017 [id number] COLLEEN Rick, [facility], OFFICE [address] [place] [address] 99045[address] 6 03/30/2014 09:42:43 03/30/2014 10:30:43 Atopic dermatitis 84319182 [id number] Val Craig NP Sports Medicine, [address] [address] 07/26/2014 11:21:03 07/28/2014 16:00:35 Sinusitis 32607794 History and exam most c/w sinusitis. Allergic verses infectious . Discussed likely viral in nature and patient will use OTC cough and could medication along with antihistam ine. Script for Azithromyc in also sent to pharmacy for pt to use if not improving in 1 week. [id number] ENA Cat, [facility], OFFICE [address] [place] [address] 78621[address] 6 03/21/2015 11:18:53 03/21/2015 12:38:12 Influenza vaccine needed 3510896374 106 Conjunctivitis 3858137 l ikely allergic Administra tion of pneumococcal vaccine 85568882 [id number] SORIN Lindo, [facility], OFFICE [address] [place] [address]844 6 05/21/2015 09:44:22 05/21/2015 12:15:44 Tuberculosis screening 401820507 Z11.1 [id number] ENA Benjamin, [facility], OFFICE [address] [place] [address]24[address] 6 12/31/2015 08:54:23 12/31/2015 09:22:25 Asthma 733012339 J45.909 Asthma under good control. Obesity 395022649 E66.9 [id number] Tayla Blount NP , [facility], OFFICE [address] [place] [address]56[address] 6 07/07/2016 08:13:29 07/07/2016 09:04:32 Adult health examination 041458173 Z00.00 see Risk Assessment and Lifestyle Change Counseling section above Counseling 819634914 Z71 .9 Asthma 831747199 J45.30 PERSISTENT (Mild/Mod/ Severe) Based on history, physical assessment and peak flow the patient's asthma in Not in control. See orders for adjustment in plan. The asthma action plan has been discussed. The patient verbalizes understand ing of medication use. The patient is in agreement with this plan Screening for malignant neoplasm of cervix 372852441 Z12.4 Active or passive immunization 162426049 Z23 Morbid obesity 064296260 E66.01 interested in wt loss SMA and also interested in considerin g bariatric surgery. Eczema 00138204 L30.9 Angular cheilitis 441071 005 K13.0 [id number] Sydine Medrano NP , [facility], OFFICE [address] [place] [address]697[address] 6 11/07/2016 08:05:38 11/10/2016 12:43:18 Acute sinusitis 12636092 J01.90 >10 days symptoms w/o relief recommend supportive care of nasal saline, steam/hot showers, increased hydration, ibuprofen or tylenol as needed for pain, cough syrup as needed for cough and rest. given duration of symptoms purulent nasal discharge focal sinus pain plan for treatment with antibiotic s for 7 days side effects of antibiotic s include nausea, vomiting, diarrhea, yeast infection; important to complete script; reasonable to try probiotics to help limit side effects to call if symptoms worsen [id number] Tayla Blount NP , [facility], OFFICE [address] [place] [address]198[address] 6 01/05/2017 08:02:33 01/05/2017 08:38:41 Asthma 538394010 J45.30 PERSISTENT (Mild/Mod/ Severe) Based on history, physical assessment and peak flow the patient's asthma in Not in control. See orders for adjustment in plan. The asthma action plan has been discussed. The patient verbalizes understand ing of medication use. The patient is in agreement with this plan Counseling 642929596 Z71 .9 Obesity 979260502 E66.9 Seasonal a llergic conjunctivitis 942529776 H10.13 [id number] RAIN Morrison , [facility], OFFICE [address] [place] [address] 99030[address] 6 05/11/2017 08:24:46 05/11/2017 13:45:30 Acute upper respiratory infection 54500803 J06.9 Drink plenty of fluids. Eat healthy foods, lots of fruits and vegetables . Rest when you can. Take ibuprofen 400 mg or acetaminop hen 650 mg every 6 hours as needed for aches or headache and for fever. You can use a Neti pot for nasal congestion or sinus pain/press ure. Elderberry extract and Umcka are herbal remedies that have been shown to reduce length of flu-like symptoms. Gargling with salt water can help your immune system fight off the sore throat. Mix 1/2 teaspoon of salt with 8 oz warm water, gargle for 20-30 secs, and spit out the liquid. Repeat twice daily. Use Sugar free lozenges can help with a sore throat. Wash your hands frequently . Symptoms may worsen for the first 7-10 days before they improve For high fever (>101) for more than 3 days, worsening shortness of breath, cough productive of rust-color ed mucus (not dark yellow), or symptoms unchanged at two weeks, come back in for reassessme nt (urgent care available in [place] office Sat 9 and Thursday-12 by appointmen t - call after 8AM for appt.) Dry cough can last for up to six weeks. Asthma 876182100 J45.90 9 Advised to use albuterol q4 hrs as needed for wheezingAd vised to contact surgeons office to inform them of URI and asthma flare [id number] Tayla Blount NP , [facility], OFFICE [address] [place] [address] 86762[address] 6 07/27/2017 08:06:57 07/27/2017 08:56:24 Adult health examination 605065740 Z00.00 see Risk Assessment and Lifestyle Change Counseling section above Counseling 328695948 Z71 .9 Asthma 913161223 J45.30 PERSISTENT (Mild/Mod/ Severe) Based on history, physical assessment and peak flow the patient's asthma in Not in control. See orders for adjustment in plan. The asthma action plan has been discussed. The patient verbalizes understand ing of medication use. The patient is in agreement with this plan [facility] [id number] E66.9 [id number] AYAD Pérez, [facility], OFFICE [address] [place] [address] 6 12/23/2017 13:40:58 12/23/2017 14:34:35 Acute sinusitis 26798911 J01.90 Persisting x 12 days.Rec'd trial of Flonase.Wo uld start Augmentin x 7 days for any worsening or failure to improve in 4-5 days. [id number] ENA Benjamin, [facility], OFFICE [address] [place] [address] 47756[address]093 6 01/11/2018 08:59:38 01/11/2018 09:30:11 Asthma 971658852 J45.30 PERSISTENT (Mild/Mod/ Severe) Based on history, physical assessment and peak flow the patient's asthma in Not in control. See orders for adjustment in plan. The asthma action plan has been discussed. The patient verbalizes understand ing of medication use. The patient is in agreement with this plan Counseling 137085754 Z71 .9 Obesity 186146621 E66.9 [id number] Enrico Perez MD , [facility], OFFICE [address] [place] [address] 07/25/2018 11:28:40 07/26/2018 09:20:09 Influenza 2874084 J11.1 Patient with clinical presentati on of Influenza infection, confirmed with Rapid Flu positive for Influenza A. Symptoms for 48 hours now. Will treat with Tamiflu. No hemodynami c instabilit y. Supportive care with ample oral hydration and rest discussed. Advised on nasal saline irrigation , decongesta nt, and NSAID use. Advised to contact the clinic if no improvemen t in 3-4 days. Indication s for UC/ER use discussed. [id number] Tayla Blount NP , [facility], OFFICE [address] [place] [address] 08/04/2018 09:05:30 08/04/2018 09:43:24 Adult health examination 424300400 Z00.00 see Risk Assessment and Lifestyle Change Counseling section above Counseling 065348736 Z71 .9 Depression screening 171 607135 Z13.89 depression screening tool administer ed, entered into emr, scored and discussed, time greater than 7.5 minutes. Screening negative, discussed. Intrinsic asthma 6642640 08 J45.20 INTERMITTE NT Asthma- Based on history, physical assessment and peak flow the patients asthma is in control. Will continue the present medication s and follow-up in 6 months. The asthma action plan has been discussed. The patient verbalizes understand ing medication use.. The patient is in agreement with this plan. 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 I advised patient to f/u with Dr. Mitchell to see if needs another LPI OD. IOP wnl and ONH appear healthy OU. pt ed on symptoms of angle closure and to RTC ZAC if occur. Seasonal a llergic conjunctivitis 952422659 H10.13 by history. pt ed. D/C visine. May use Zaditor or Alaway 1-2 x day for itching. [id number] Nicole Kaplan DNP, AGRICULTURAL ADVISER-BC , [facility], OFFICE [address] [place] [address] 06/09/2019 13:31:54 06/09/2019 15:23:04 Acute upper respiratory infection 26364080 J06.9 Educated patient that URI is a viral illness of the upper airways. It is not bacterial and does not benefit from antibiotic s. Average duration of URI is 7-10 days but in a recent trial, treatment at 7-10 days of illness with antibiotic s, intranasal steroids, or placebo did not alter natural history at 3 weeks. Recommende d symptomati c treatments including NSAIDS, semi-uprig ht sleep position, antihistam farhana at HS, limited course of nasal sympathomi metics and/or cough syrups, and nasal saline rinses with soft squeeze bottle or Neti pot. Return for fevers > 101 for 3 days, worsening sinus pain, or failure to resolve in 2-4 weeks. Elevated blood-pressure reading without diagnosis of hypertension 787300993 R03.0 Recheck in 2 weeks when feeling better [id number] Venus Campos , [facility], OFFICE [address] [place] [address] 06/23/2019 15:59:02 06/24/2019 10:21:28 Active or passive immunization 156618178 Z23 [id number] Susie Crockett PA-C , [facility], OFFICE [address] [place] [address] 07/18/2019 13:37:23 07/18/2019 15:26:37 Cough 98547383 R05 - chest xray negative and flu testing negative Acute sinusitis 30891319 J01.90 Encourage force fluids, steam inhalation as needed, adequate rest. Take antibiotic s as prescribed , probiotics while on the antibiotic and follow up if not improving or symptoms worsening. - failed augmentin [id number] Janki Lai RN BSN , [facility], OFFICE [address] [place] [address] 6 10/28/2021 14:48:15 11/05/2021 14:44:02 Tuberculosis screening 140978826 Z11.7 [id number] RAINA Oconnell , [facility], OFFICE [address] [place] [address] 6 12/18/2021 11:49:53 12/19/2021 16:16:34 COVID-19 059176913 U07.1 Tested positive on 12/05/21, still having residual congestion and fatiguePhy sical exam wnl today, lungs CTAWill continue supportive care, pt to contact the office if no improvemen t or any worsening symptoms Elevated blood-pressure reading without diagnosis of hypertension 778727416 R03.0 BP elevated today, will have pt return to recheck in bp clinic once feeling better [id number] Nicole Kaplan DNP, MARIYA , [facility], OFFICE [address] [place] [address]87[address] 6 02/14/2022 07:59:45 02/14/2022 08:24:51 Screening for disorder 214859432 Z11.59 Elevated blood-pressure reading without diagnosis of hypertension 670605750 R03.0 Recheck in 2 weeks when feeling betterMild DBP, monitor reactive stress at work w/ symptoms.L ifestyle, stress reduction, exercise, mindfulnes s, yoga, musicDiscu sed option to treat as anxiety vs HTN.F/U at wellness visit or if symptoms persist. Hyperlipid emia screening 686061458 Z13.220 F/U at wellness [id number] Nicole Kaplan DNP, MARIYA , [facility], OFFICE [address] [place] [address] 6 03/21/2022 08:22:19 03/21/2022 09:16:24 Adult health examination 886168431 Z00.00 Pap 2016, normal, completed 03/21/22, if normal repeat in 5 yearsMammo gram- discussed, start at age 50.Breast awareness discussedC olonoscopy -discussed age 47.Healthy diet and exerciseTD todayF/U yearly Counseling 339233844 Z71 .9 including cardiovasc ular risk reduction counseling -calcium- from diet-exerc ise-health y BP-lipids checked, normal, repeat in 3-5 years or as needed Depression screening 171 923475 Z13.31 depression screening tool administer ed, entered into emr, scored and discussed, time greater than 7.5 minutes Screening for alcohol abuse 239887068 Z13.39 An audit alcohol screening test was performed and scored. Patient was asked about alcohol use, advised about risks of alcohol, and personal risk was assessed, patient agreed to plan and given informatio n about available resources if needed. Discussion including screening and scoring greater than 7.5 minutes Active or passive immunization 424702479 Z23 Td/Tdap - dueCovid booster recommende dFlu vaccine recommenee d Screening for malignant neoplasm of cervix 063804655 Z12.4 Screening for malignant neoplasm of colon 709656430 Z12.11 Referral for a DIRECT booked colonoscop y. This patient is a healthy ASA Class 1 or 2 patient (only mild systemic disease), or a STABLE, well controlled insulin dependent diabetic. They do not have serious cardiac disease ie AZ/angiopl asty within 1 year, symptomati c CHF; renal failure with CKD 4 or 5; take Coumadin, Plavix, Aggrenox, etc. Loss of hair 125288230 L 65.9 Pigmented skin lesion of uncertain nature 396336579 L81.9 Raised left neck mole, changing size, discussed need for return for shave biopsy.F/U for procedure. , Discussed that it meets criteria for removal to rule out skin cancer, melanoma.D iscussed procedure , shave biopsy w/ lidocaine. [id number] Nicole Kaplan, CLINT, AGRICULTURAL ADVISER-BC FP, [facility], OFFICE [address] [place] [address] 04/22/2022 13:45:09 04/29/2022 15:30:41 Screening for malignant neoplasm of colon 220462686 Z12.11 Referral for a DIRECT booked colonoscop y. This patient is a healthy ASA Class 1 or 2 patient (only mild systemic disease), or a STABLE, well controlled insulin dependent diabetic. They do not have serious cardiac disease ie AZ/angiopl asty within 1 year, symptomati c CHF; renal failure with CKD 4 or 5; take Coumadin, Plavix, Aggrenox, etc.Prev referred Active or passive immunization 665719884 Z23 Td/Tdap - dueCovid booster recommende dFLU VAC - DECLINED Tick bite 11116360 W57.X XXA EM rash, likely bullseye from a deer tick-Left ribs-Treat w/ Doxy 100 mg twice daily for 10 daysDiscus sed side effects and sun sensitivit y, need for sunscreen Pigmented skin lesion of uncertain nature [id number] L81.9 Raised left neck mole, changing size, discussed need for return for shave biopsy.F/U for pending results , Discussed that it meets criteria for removal to rule out skin cancer, melanoma.D iscussed procedure , shave biopsy w/ lidocaine. Tolerated procedure [id number] Nicole Kaplan, DNP, AGRICULTURAL ADVISER-BC , [facility], OFFICE [address] [place] [address] 12/19/2022 07:52:09 12/19/2022 08:40:19 Screening mammography [id number] Z12.31 Screening for malignant neoplasm of colon 651571207 Z12.11 Referral for a DIRECT booked colonoscop y. This patient is a healthy ASA Class 1 or 2 patient (only mild systemic disease), or a STABLE, well controlled insulin dependent diabetic. They do not have serious cardiac disease ie AZ/angiopl asty within 1 year, symptomati c CHF; renal failure with CKD 4 or 5; take Coumadin, Plavix, Aggrenox, etc. Pain of ri ght shoulder joint [id number] M25.511 Right neck cervical radiculopa thy radiating to the right shoulder causing right shoulder pain-Discu ssed ergonomic work set up, naproxen med use reviewed, risks reviewed, takes as needed every 12 hrs with food. Stop if upset stomach.Fo llow up with PTIf not improving return for re-eval and will onsider imaging. Cervical radiculopathy [id number] M54.12 [id number] Maritza Reyna, OD Eye Care, [facility] [address] [place] [address] 04/10/2023 08:49:41 04/10/2023 09:31:33 Hypermetropia 24396003 H52.03 Narrow angle 613733505 H 40.033 s/p PI OU about 14 years ago; patent OS, however iridotomy OD is not patent. I advised patient to see ophthalmol ogist to see if needs another LPI OD. IOP wnl at 16 OU today. ONH appear healthy OU. pt ed on symptoms of angle closure and to RTC ZAC if occur. [id number] RAINA Oconnell , [facility], OFFICE [address] [place] [phone] 05/04/2023 14:49:40 05/06/2023 11:42:05 Conjunctivitis 2095531 H10.9 Will treat with abx eye drops, pt to contact the office if no improvemen t or any worsening symptoms [id number] RAINA Reyna , [facility], OFFICE [address] [place] [phone] 05/07/2023 11:39:30 05/07/2023 19:01:01 Active or passive immunization [id number] Z23 flu - already got 05/07/23 cc Conjunctivitis 7598266 H 10.9 switch from drops to ointmentca ll if worsening/ not resolving Elevated blood-pressure reading without diagnosis of hypertension 547312242 R03.0 mildly above goal todayreche ck once feeling better Asthma [id number] J45.30 no s/s exacerbati on at this timelungs clear, O2 100%contin ue inhaler as prescribed Acute uppe r respiratory infection 08421524 J06.9 home covid negative x3, no fever/chil ls, influenza vaccinated discussed continued OTC care -Recommend ed symptomati c treatments including NSAIDS, semi-uprig ht sleep position, antihistam farhana at HS, limited course of nasal sympathomi metics and/or cough syrups, and nasal saline rinses with soft squeeze bottle or Neti pot. Return for fevers > 101 for 3 days, worsening sinus pain, or failure to resolve in 2-4 weeks. [id number] Nicole Kaplan, CLINT, AGRICULTURAL ADVISER-BC , [facility], [address] [place] [address] 09/03/2023 09:10:41 09/04/2023 11:55:13 Strain of muscle of right shoulder [id number] 8038124 S46.911A Suspected right RC versus trapezius strain- refer to PT, continue naproxen 500 mg every 12 hrs as needed. If upset stomach then stop. take w/ food. Asthma [id number] J45.30 Doing well on symbicort- refills sent [id number] Marie Yip, PT Physical Therapy, [address] [phone] 10/20/2023 08:51:12 10/23/2023 15:21:30 Strain of muscle of right shoulder [id number] S46.911D Patient is a 48-year old female who presents to physical therapy with complaint of right pain which is . Physical examinatio n revealed decreased and painful right shoulder AROM, pain and weakness during resisted testing, positive Flor-Ke nnedy, Neers, and Empty Can tests, and TTP of the right teres minor, medial deltoid, pec minor, and biceps long head tendon. Findings most consistent with rotator cuff strain with concomitan t tendinopat hy of the right UE. Patient has moderate functional limitation in their ADLs and exercise capacity. Primary limitation s include: sleeping through the night, reaching overhead or out to the side, performing dressing and bathing tasks, and lifting or carrying more than 5 pounds. Skilled physical therapy is indicated to safely and progressiv rafael address impairment s and functional limitation s as outlined below. Patient is a good candidate for physical therapy due to active lifestyle, good support system, and motivation to actively participat e in their plan of care. Short Term Goals:In 4 weeks, patient will:1. Reach into a high cabinet with right shoulder pain no greater than 3/10.2. Don and doff a jacket with right shoulder pain no greater than 3/10. 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 Demonstrat e pain free active, passive, and resisted motions of the right shoulder2. Lift and carry 20 pounds without right shoulder pain.4. Demonstrat e independen ce with comprehens nadja HEP. Treatment Plan: Patient to return for 8 visits over 12 weeks. We expect significan t change in pain, impairment and function in this time frame. Treatment to Include: Continuing assessment , neuromuscu lar re-educati on, therapeuti c exercise, patient education, HEP (initiated ), manual therapy PRN, modalities PRN, taping PRN. [id number] Marie Yip, PT Physical Therapy, [address] [phone] 10/27/2023 08:20:09 10/27/2023 14:18:42 Strain of muscle of right shoulder [id number] S46.911D Treatment Plan: Patient to return for 8 visits over 12 weeks. We expect significan t change in pain, impairment and function in this time frame. Treatment to Include: Continuing assessment , neuromuscu lar re-educati on, therapeuti c exercise, patient education, HEP (initiated ), manual therapy PRN, modalities PRN, taping PRN. [id number] Marie Yip, PT Physical Therapy, [address] [phone] 11/12/2023 08:19:21 11/17/2023 15:27:02 Strain of muscle of right shoulder [id number] S46.911D Treatment Plan: Patient to return for 8 visits over 12 weeks. We expect significan t change in pain, impairment and function in this time frame. Treatment to Include: Continuing assessment , neuromuscu lar re-educati on, therapeuti c exercise, patient education, HEP (initiated ), manual therapy PRN, modalities PRN, taping PRN. [id number] , [facility], [address] [address] 02/19/2024 10:30:07 02/19/2024 11:19:32 Screening for malignant neoplasm of colon 580688513 Z12.11 02/19/24-pt reminded Multiple joint pain 3567 8005 M25.50 Strain of biceps brachii muscle and/or tendon 308367572 S46.111A Suspected strain versus tear of bicep muscle, will r/o DVTRefer to [facility], NSAIDs w/ food Pain in right arm 084943 004 M79.601 Right hand dominant, right bicep tenderness -Dr. 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 patent OU. good IOP today. ONH appear healthy OU. pt will call zac if any symptoms of angle closure occur. Ophthalmic examination and evaluation 82021845 Z01.01 Patent per ipheral iridotomy 529749161 H21.89 [id number] Sydnie Medrano NP , [facility], [address] [place] [phone] 07/26/2024 15:25:47 07/29/2024 12:13:29 Active or passive immunization [id number] Z23 flu vaccine UTD per pt Rib pain 337759917 R07.8 1 right mid and lower, anterior and posterior rib pain x2 weeks. started after a strength work out. no obvious trauma. no improvemen t with NSAIDs or muscle relaxers. No dyspnea. Possible costochond ritis. due to the seveity and persistenc e of pain, will xray. Start prednisone taper. med/use discussed. okay to continue ice or heat, whichever feels better, 20-30 minutes at a time. follow up if not improving with treatment Screening for malignant neoplasm of colon [id number] Z12.11 Referral for a DIRECT booked colonoscop y. This patient is a healthy ASA Class 1 or 2 patient (only mild systemic disease), or a STABLE, well controlled insulin dependent diabetic. They do not have serious cardiac disease ie AZ/angiopl asty within 1 year, symptomati c CHF; renal failure with CKD 4 or 5; take Coumadin, Plavix, Aggrenox, etc. [id number] DON LAO NP , [facility], [address] [place] [address] 09/23/2024 07:52:10 09/23/2024 08:21:32 Screening mammography 95047380 Z12.31 -due 04/15/25, ordered Atrial fibrillation 4943 6004 I48.91 -new onset in ER 09/11/24-sp ontaneousl y cardiovert ed back to NSR-no symptoms since-LISSETH VASC score of 0, no anticoagul ation indicated- has cardiology f/u in 1 week 09/30/24-wi ll check thyroid function as not done so in the ER-advised to avoid alcohol and caffeine Screening for malignant neoplasm of colon 356345059 Z12.11 -needed to be reschedule d due to a fib diagnosis, needs cardiac clearance first Health Concerns Section Related Observation LastModified by Organization Detai ls LastModified Time None Recorded Concern Status LastModified by Organization Details LastModified Time None Recorded Advance Directives Directive N: Payers Encounter Date Sequence Insurance Name Policy Number Policy Leija Covered Member ID Leija Member ID Guarantor Name 11/12/2023 1 [facility]) [id number] Lois Mijares [id number] Lois Mijares 02/19/[address] [facility] [place] [place] [id number] Lois Rhona Mijares [id number] Lois Rhona Mijares 04/12/[address] [facility] [place] [place] [id number] Lois Rhona Mijares [id number] Lois Rhona Mijares 07/26/[address] [facility] [place] [place] [id number] Lois L Mijares [id number] Lois L Dyllan 09/23/[address] [facility] [place] [place] [id number] Lois Rhona Mijares [id number] Lois Mijares Notes Date Note Type Note Provider Name and Address Organization Details Recorded Time 02/19/2024 text/html Follow up on Shoulder, last seen in Aug: Right shoulder strainsomething in bicep -most of the time is ok-feels bicep pain, cant rotate up-difficulty drying hair, shirt on and off, reach for shutting car door-comes and then goes-relaxes and goes-feels like someone grabs muscle and rips-PT on shoulder, better, improved. neck shoulder pain resolved now only bicep pain is the issue-pain since AUG, in ER last weekend collarbone pain, severe pulling clavicular pain-knee and joint pain , neck pain resolved with injection in the ER PT session w/ Marie x 3Feb 2023 visitPulling sensation in right shoulder, worse at night. Wakes from sleep. 1 month, falls asleep on the right side. Pressure feels better. Goes to gym 3 times a alturas, this is normal. Pushup- struggled with this. Has been in class for a year. Taking off shirt hurts.Left arm is fineReduced ROm of right shoulder.MEDs- OTC Naprosyn at night to sleep- 440 mg at bedtime Asthma-Doing well , controlled. Stable on symbicort. Refills needed Nicole Kaplan, DNP, AGRICULTURAL ADVISER-BC [address] [place], [phone], [facility] [place]/19/[place]24 11:10:41 04/12/2024 text/html Comprehensive Ey e ExamReported bypatient.Quality:1 year exam;blurred vision near with glasses(mild) Location:bilateral Context:currently wears glasses Modifying factors:wears glasses for distance and near Associated Symptoms:no redness; no itching; no floaters; no dryness 1 yr f/u on narrow angles OU, S/p PI x 2 OD (most recently last year) and x 1 OS; see notes. Maritza Reyna, OD [address] [place], [phone], [facility] [place] 04/12/2024 11:07:27 07/26/2024 text/html 49yo F presents with c/o right sided back pain radiating to chest x 2 weeks- thought was related to gym class work out. weights and strength training- hard to get out of bed the next day- went to urgent care- muscle relaxer makes her tired but is not helping- a week later started radiating to right lower chest- standing and stretching up helps- worst in the morning- has tried heat, massager, ice, aspercreme- naproxen 500mg BID- TCH ointment has not helped- no radiating pain to limbs- no dyspnea- no weakness or tingling- skin felt numb last week. better now- no rashes- no change in appetite- regular BM- no incontinence Sydnie Medrano NP [address] [place] [address], [phone], [facility] [place] 07/26/2024 16:03:55 09/23/2024 text/html 09/23/24ER f/u -[facility] [place] ER visit 09/11/24 for atrial fibrillation which spontaneously converted to sinus rhythm while at the ER-sx included fluttering feeling in chest and SOB-CHADVASC score of 0, not anticoagulated-no symptoms since the hospital-uses a smart watch to monitor heart rate, which has ranged from 60s-90s while at rest-will be seeing cardiology at [place] next Thursday-mother has had longstanding thyroid disease, hypothyroidism DON LAO NP [address] [place] [address], [phone], [facility] 09/23/2024 08:24:55 OBGyn Episode No OBEpisode recorded.
== END 2024-09-30 14:10 | disposition home or self-care (01) ==
LOC: HO.HCS 13:20
PROVIDERS: PCP Family Medicine
DX: I48.0 Paroxysmal atrial fibrillation (principal); R07.89 Other chest pain
CPT/HCPCS: 93010; 99204

== ENCOUNTER → 2024-09-30 13:20 | Outpatient (BNVA) | payer OTHER, SELFPAY | PROVIDERS: PCP Family Medicine | DX: I48.0 Paroxysmal atrial fibrillation (principal); E66.9 Obesity, unspecified; G47.33 Obstructive sleep apnea (adult) (pediatric); R07.89 Other chest pain; Z68.41 Body mass index [BMI] 40.0-44.9, adult; Z87.891 Personal history of nicotine dependence | CPT/HCPCS: 93005 ==

== ENCOUNTER → 2024-10-25 07:45 | Outpatient (REF) | payer OTHER, SELFPAY ==
--- NOTE | 2024-10-25 07:57 | CA_ITS ---
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 The calculated ejection fraction is 63% by biplane method. - Possible basal inferior/inferolateral hypokinesis. - There is mild to moderate mitral valve regurgitation. The mitral regurgitation jet is directed posteriorly. Findings Left Ventricle Normal left ventricular cavity size. There is normal left ventricular wall thickness. The left ventricular systolic function is normal. The calculated ejection fraction is 63% by biplane method. Diastolic function is normal for age. Possible basal inferior/inferolateral hypokinesis. LV peak GLS -22.2%. Right Ventricle Normal right ventricular cavity size and systolic function. Atria The left atrium is mildly dilated. The right atrium is normal in size. Aortic Valve There is a normal trileaflet aortic valve. There is no aortic valve stenosis. There is trace (trivial) aortic valve regurgitation. Mitral Valve There is mild anterior mitral leaflet thickening. There is mild to moderate mitral valve regurgitation. The mitral regurgitation jet is directed posteriorly. There is no mitral valve stenosis. Posterior mitral leaflet appears restricted in some views. Pulmonic Valve The pulmonic valve is likely normal. Tricuspid Valve There is trace tricuspid valve regurgitation. There is no evidence of pulmonary hypertension. Great Vessels The asc aorta is normal in size. Venous The inferior vena cava is normal in size and collapses greater than 50% with inspiration. Pericardium/Pleural There is no evidence of pericardial effusion. Prior Study Comparison No prior study available for comparison. Measurements 2D Linear Measurements IVSd: 0.92 0.6-0.9/0.6-1.0 cm LVIDd: 4.52 3.9-5.3/4.2-5.9 cm LVIDd Index: 2.23 2.4-3.2/2.2-3.1 cm/m2 LVIDs: 3.06 2.0-3.6 cm LVPWd: 0.85 0.7-1.1 cm LA Diam: 4.20 2.7-3.8/3.0-4.0 cm LAIDs Index: 2.07 1.5-2.3 cm/m2 LV Mass: 162.53 67-162/88-224 g LV Mass Index: 80.06 43-95/49-115 g/m2 LVOT Diam: 2.10 3.0+(-)1.3 cm 2D Systolic Function EF 4C: 63.90 >55% EF 2C: 64.30 >55% EF BiP: 63.30 >55% Mitral Valve MV Pk E: 1.08 MV PK A: 0.90 MV Decel Time: 213.00 E/A: 1.20 E'Lateral: 8.05 E'Medial: 6.96 E/E' Med: 15.50 E/E' Lat: 13.40 PHT: 62.00 MVA PHT: 3.55 Decel Box Elder: 5.07 Aortic Valve AoV Pk Juan: 1.23 AoV Mn Juan: 0.76 AoV VTI: 0.25 AoV Pk Grad: 6.00 Aov Mn Grad: 3.00 DONALD Cont.VTI: 2.86 LVOT LVOT Pk Juan: 0.87 LVOT Mn Juan: 0.58 LVOT VTI: 0.21 LVOT Pk Grad: 3.00 LVOT Mn Grad: 2.00 LVOT Diam: 2.10 LVOT Area: 3.46 Diastolic Function MV Pk E: 1.08 MV Pk A: 0.90 E/A: 1.20 E'Medial: 6.96 E/E' Med: 15.50 E' Laterial: 8.05 E/E' Lat: 13.40 Right Ventricle TAPSE (mm): 28.40 TVS' Juan: 13.20 Tricuspid Valve TR Pk Juan: 2.25 TR Pk Grad: 20.00 RA Press: 3.00 RVSP: 23.00 Great Vessels Aorta Sinus of Valsalva: 3.39 2.0-3.5 cm Ao Asc: 3.40 2.1-3.4 cm Updated in Other Vendor System with Status of Final Kingston Shultz MD electronically signed on 10/25/2024 1:50:22 PM with status of Final
--- NOTE | 2024-10-25 07:57 | CA_ITS ---
Acquisition Time: 2024-10-25 08:50:42 Total Exercise Time: 00:06:29 Test Indications: CP,Abnormal ECG AFIB PALPITATIONS Medications: SYMBICORT METOPROLOL Protocol: ALIZE Max HR: 179 BPM 103% of Pred: 173 BPM Max BP: 200/84 mmHG Max Work Load: 7.7 METS Exercise Stress Test with exercise 6 mins 29 secs of Alize Protocol, achieving 92% MPHR, with rerpots of moderate SOB, no chest pain, with isolated PACs and PVCs, brief atrial runs - max 3 beats, with hypertensive response- max BP 200/84, baseline BP 150/94 (held AM BB). Without EKG changes meeting criteria for ischemia. In recovery, breathing returned to baseline. BP improved slowly- had her take her Metropolol. Test reviewed with Dr. Steiner. Referred By: Rick Raymond Electronically Signed By: Rick Raymond
== END ==
LOC: HO.CARD 07:45
DX: I48.0 Paroxysmal atrial fibrillation (principal); R07.89 Other chest pain
CPT/HCPCS: 93017; 93242; 93306

== ENCOUNTER → 2024-10-25 07:57 | Outpatient (BNV) | payer OTHER, SELFPAY | DX: I48.0 Paroxysmal atrial fibrillation (principal); I35.1 Nonrheumatic aortic (valve) insufficiency | CPT/HCPCS: 93016; 93018; 93350; 93356 ==

== ENCOUNTER → 2024-11-25 07:37 | Outpatient (REF) | payer OTHER, SELFPAY ==
[2024-11-25 09:28] LABS: Anion Gap 11 (12-20); Blood Urea Nitrogen 10 mg/dL (9-16); Calcium 9.3 mg/dL (8.4-10.2); Carbon Dioxide 30 mmol/L (22-29); Chloride 104 mmol/L (96-108); Estimated Glomerular Filt Rate > 60; Glucose Random 90 mg/dL (60-115); Sodium 141 mmol/L (135-145)
== END ==
LOC: HO.CARD 07:37
DX: I48.0 Paroxysmal atrial fibrillation (principal); R07.89 Other chest pain
CPT/HCPCS: 36415; 80048; 93246

== ENCOUNTER → 2024-11-25 07:41 | Outpatient (BNV) | payer OTHER, SELFPAY | PROVIDERS: Visit Provider Internal Medicine Cardiovascular Disease | DX: I47.10 Supraventricular tachycardia, unspecified (principal); I49.1 Atrial premature depolarization | CPT/HCPCS: 93248 ==

== ENCOUNTER → 2024-11-30 08:40 | Outpatient (REF) | payer OTHER, SELFPAY | LOC: HO.SL 08:40 | DX: G47.33 Obstructive sleep apnea (adult) (pediatric) (principal) | CPT/HCPCS: 95806 ==

== ENCOUNTER → 2024-11-30 08:58 | Outpatient (BNV) | payer OTHER, SELFPAY | PROVIDERS: Visit Provider Internal Medicine | DX: G47.33 Obstructive sleep apnea (adult) (pediatric) (principal); R06.83 Snoring | CPT/HCPCS: 95806 ==

== ENCOUNTER 2025-05-30 14:39 | Outpatient (AMB) | payer OTHER, SELFPAY ==
--- OUTSIDE RECORDS SUMMARY | 2023-12-17 14:15 | XMS_ITS | Encounter Summary ---
Author Organization [facility] Address [address] [place] [address] Phone Care Team Providers Care Bandage Maker Name Role Phone Shanice Aguiar NP Primary Care Provid er Encounter Details Date Type Department Care Team (Late st Contact Info) Description 12/17/2023 3:15 PM EDT Hospital Encounter [facility] [address] [place] [id number] Yumiko Curtis FNP [address] [place] [phone] [email or web address] Social History Tobacco Use Types Packs/Day Years Used Date Smoking Tobacco: Never Smokeless Tobacco: Never Alcohol Use Standard Drinks/Week Comments Not Currently 0 (1 standard drink = 0.6 oz pur e alcohol) Education Answer Date Recorded Are you interested in more education? Not on laci e 11/14/2022 Are you concerned about learning? Not on file 11/14/2022 No 11/14/2022 No 11/14/2022 Digital Access Answer Date Recorded No 12/12/2022 No 12/12/2022 Reliable internet access at home? Not on file 12/12/2022 Device with a working camera? Not on file Intimate Partner Violence Answer Date R ecorded Are you denied basic needs s uch as food, clothing, or medical care? No 02/07/2024 In the past 12 months have y ou been in a relationship with a person who hurts, threatens, or tries to control you? No 02/07/2024 Are you denied basic needs s uch as food, clothing, or medical care? No 02/07/2024 In the past 12 months have y ou been in a relationship with a person who hurts, threatens, or tries to control you? No 02/07/2024 Comments Unknown Sex and Gender Information Value Date Recorded Sex Assigned at Female 07/27/2017 9:38 AM EST Legal Sex Female 9:26 PM EDT Gender Identity Female 07/27/2017 9:38 AM EST Sexual Orientation Straight 07/27/2017 9: 38 AM EST documented as of this encounter Functional Status * Calculated C-SSRS Risk Score (Lifetime/Recent) Answer Date of Assessment Author No Risk Indicated 02/07/2024 7:21 AM EDT Sonya Linn RN * [place] Suicide Severity Rating Scale (Screener/Recent Self-Report) Question Answer Date of Assessment Author 1. Wish to be (Past 1 Month) No 024 7:21 AM EDT Sonya Linn RN 2. Non-Specific Active Suici adriana Thoughts (Past 1 Month) No 02/07/2024 7:21 AM EDT Jacinto Linn RN 6. Suicidal Behavior (Lifetime) No 7:21 AM EDT Sonya Linn RN documented as of this encounter Plan of Treatment Not on file documented as of this encounter Procedures Procedure Name Priority Date/Time Associated Diagnosis Comments XR SHOULDER 2 VIEWS (RIGHT) Urgent/patient waiting 12/17/2023 3:19 PM EDT Chronic right shoulder pain documented in this encounter Results * XR SHOULDER 2 VIEWS (RIGHT) (12/17/2023 3:19 PM EDT) Anatomical Region Laterality Modality Shoulder Right Computed Radiogr aphy 12/17/2023 3:23 PM EDT Impressions 12/17/2023 3:34 PM EDT No acute fracture or dislocation. Tiny calcification adjacent to the greater tuberosity may represent calcific tendinosis. ATTESTATION: I, Elham Jon as teaching physician, have reviewed the images for this case and if necessary edited the report originally created by Víctor Cortez. Narrative 12/17/2023 3:34 PM EDT XR SHOULDER 2 OR MORE VIEWS (RIGHT) Referring clinician's provided indication for this examination in [facility]: Pain; pain for 6 mos with limited mobility. has had PT. COMPARISON: None. FINDINGS: No fracture. Normal glenohumeral alignment and joint space. Normal acromioclavicular joint. Focal calcification adjacent to the greater tuberosity may reflect calcific tendinosis. Procedure Note Elham Jon MD - 12/17/2023 XR SHOULDER 2 OR MORE VIEWS (RIGHT) Referring clinician's provided indication for this examination in Epic:Pain; pain for 6 mos with limited mobility. has had PT. COMPARISON: None. FINDINGS: No fracture. Normal glenohumeral alignment and joint space. Normalacromioclavicular joint. Focal calcification adjacent to the greatertuberosity may reflect calcific tendinosis. IMPRESSION: No acute fracture or dislocation. Tiny calcification adjacent to the greater tuberosity may representcalcific tendinosis. ATTESTATION: I, Elham Jon as teaching physician, have reviewed theimages for this case and if necessary edited the report originally createdby Víctor Cortez. Yumiko Curtis MANHOLE STRIPPER IMG XR UPPER EXTREMITY Linda l Result documented in this encounter Visit Diagnoses Not on filedocumented in this encounter Care Teams Bandage Maker Relationship Specialty Start Date End Date Shanice Aguiar NP [address] [place] [phone] [email or web address] PCP - General Nurse Practitioner 12/17/23 documented as of this encounter Additional Source Comments The information contained in this document represents components of the legal health record. It is not the complete legal health record.[facility]
[2025-05-30 14:44] VITALS: BP 124/70; PULSE 56; BMI 38.6
--- NOTE | 2025-05-30 14:44 | A.OFFVIS_ITS ---
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 Patient with history of paroxysmal AFib not on anticoagulation due to a low Bob Vasc score of 1. Patient had also reported chest discomfort at the last visit and therefore patient underwent a stress test, Holter, sleep study, and an echocardiogram. Given wall motion abnormalities on echo, patient underwent a coronary CTA. Today, patient is reporting feeling well overall except patient had 2 episodes of AFib with high heart rate where patient was dizzy and short of breath. Patient has had no hospitalizations in related to this. Patient wears her smart watch that records her AFib and has a strips with her today. Patient is otherwise denying any exertional chest pain, orthopnea, PND, leg edema, presyncope, or syncope. Patient is reporting compliance with the medication. [facility] Family History Father HTN (hypertension) DM2 (diabetes mellitus, type 2) Heart problem Mother Myositis Social History Alcohol intake: current Alcohol intake frequency: holidays/special occasions only Patient Tobacco Use Status: Former Tobacco user Review of Systems Const Denies daytime sleepiness, Denies difficulty sleeping, Denies snoring, Denies stops breathing during sleep and Denies weakness Card Denies chest pain, Denies rapid heart rate, Denies irregular heart rhythm, Denies claudication, Denies leg edema, Denies lightheadedness, Denies palpitations, Denies dyspnea, Denies dyspnea on exertion, Denies orthopnea, Den ies paroxysmal nocturnal dyspnea and Denies slow heart rate Resp Denies cough, Denies dyspnea, Denies dyspnea on exertion and Denies snoring GI Reports no additional complaints, Denies hematochezia, Denies change in stool character and Denies dyspepsia Musc Denies abnormal gait, Denies muscle weakness and Denies numbness Neuro Denies abnormal gait, Denies numbness and Denies weakness Endo Denies palpitations Physical Exam Vital Signs: Last Vital Signs Pulse 56 05/30/25 14:44 BP 124/70 05/30/25 14:44 BMI result Body Mass Index 38.6 Const General: cooperative, healthy appearing, comfortable and no acute distress Orientation/consciousness: patient oriented x3 HEENT Head: Yes normal to inspection Neck Neck: Yes normal visual inspection, Yes trachea midline and Yes supple Chest Chest palpation & inspection: normal inspection of the chest Resp Effort & Inspection: normal respiratory effort Auscultation: clear to auscultation bilaterally, no crackles, no rales, no rhonchi and no wheezes Cardio Jugular venous distension: no JVD Palpation: normal PMI Rate: bradycardic Rhythm: regular rhythm Heart sounds: S1 normal heart sound present, S2 normal heart sound present, no click, no gallops, no murmurs and no rubs Peripheral pulses: Peripheral pulses 2+ throughout GI Inspection: Yes normal to inspection Palpation (GI): Soft to palpation Auscultation: normal bowel sounds Skin General skin exam: no rashes or lesions noted Neuro General: patient oriented x3 Extrem General: Yes normal to inspection, No no pedal edema and No calf tenderness Psych Appearance: grossly normal Mental Status: mental status grossly normal Speech and movement: Normal speech and movement present Office Procedures EKG Details: EKG today shows sinus bradycardia, rate 56 beats per minute, possible left atrial enlargement, nonspecific STT wave, [place], [place]. [id number], Complete Assessment & Plan Assessment & Plan (1) Paroxysmal A-fib: Code(s): I48.0 - Paroxysmal atrial fibrillation Category: Medical Plan: 10/25/2024-patient underwent a treadmill stress test with moderate workload without any ischemic EKG changes. 10/25/2024-echo study showed a normal LV systolic function with the ejection fraction at 63%, hsov-zo-wkrnwgor mitral valve regurgitation, and possible basal inferior/inferolateral hypokinesis. After this patient underwent a coronary CTA on 12/08/2024 at [facility] that showed no coronary disease. 11/25/2024-Holter study showed baseline sinus rhythm with occasional PACs and multiple short runs of SVT- longest 28 beats with the fastest heart rate of 181 beats per minute. History of paroxysmal AFib not on anticoagulation due to a low Bob Vasc risk score of 1. Patient was put on low-dose metoprolol initially for rate control. However, given her Holter study showing multiple episodes of SVT, we increased her metoprolol to 25 mg daily. Patient underwent a sleep study test that was negative. Today we will change her metoprolol to long-acting. We will titrate this as needed for rate control. Given her ongoing symptoms with the paroxysmal AFib, we discussed options for rhythm control. The procedure for catheter ablation along with its indications, risks, and benefits was discussed with the patient. Patient is interested in pursuing this. We will refer patient out to spout liner helper for evaluation of catheter ablation. Advised on heart healthy diet, regular exercise, med compliance, avoiding caffeinated beverages, and stress mitigation strategies. Follow up in 6 months, sooner if needed. In the interim, patient will call the office with any concerns or change in symptoms. This note was generated using voice recognition software. While every effort has been made to ensure accuracy and proper employee relations director, there may be occasional errors that could affect the content or meaning of the described symptoms. Orders: Orders AMB EKG-In Office Today I48.0 - Paroxysmal atrial fibrillation Referrals Cardiac Electrophysiology Referral I48.0 - Paroxysmal atrial fibrillation Medications: New metoprolol succinate ER 25 mg PO DAILY 90 tabs 3RF Discontinued metoprolol tartrate Discontinued Reason: Doctor's Order 25 mg PO DAILY 90 tabs 3RF Coding Level of Care Code Est Pt Level 4 (82257) Complex EM visit Add On G2211 Diagnoses Paroxysmal A-fib I48.0 CPT Codes EKG - CPT: 52260-Jcqltolbqokvfleji, Complete ([id number]) Time Spent (min) 31 Comment Time spent in reviewing the chart, test results, assessment, counseling and documentation.
--- OUTSIDE RECORDS SUMMARY | 2025-05-30 16:26 | XMS_ITS | Encounter Summary ---
Author Organization [facility] Address [address] [place] [address] Phone Care Team Providers Care Racing Board Marker Name Role Phone Shanice Aguiar COMPLIANCE ADMINISTRATOR Primary Care Provid er Reason for Visit * Auth/Cert (Routine) Specialty Diagnoses / Procedures Referred By Contac t Referred To Contact Diagnoses Gastroesophageal reflux disease without esophagitis Gastroesophageal reflux disease without esophagitis [K21.9] Procedures AL COLONOSCOPY FLX DX W/COLLJ SPEC WHEN PFRMD AL COLONOSCOPY W/BIOPSY SINGLE/MULTIPLE AL COLSC FLX W/RMVL OF TUMOR POLYP LESION SNARE TQ COLONOSCOPY Referral ID Status Reason Start Date Expiration Date Visits Re quested Visits Authorized [id number] 1 1 Encounter Details Date Type Department Care Team (Late st Contact Info) Description 04/26/2025 Hospital Encounter [facility] Admitting Dept Virtual Department [address] [place] [address] Mingo De La Torre MD [address] [place] [phone] Social History Tobacco Use Types Packs/Day Years [...] AM EST documented as of this encounter Plan of Treatment Not on file documented as of this encounter Visit Diagnoses Not on filedocumented in this encounter Care Teams Racing Board Marker Relationship Specialty Start Date End Date Shanice Aguiar NP [address] [place] [phone] [email or web address] PCP - General Nurse Practitioner 12/17/23 documented as of this encounter Additional Source Comments The information contained in this document represents components of the legal health record. It is not the complete legal health record.[facility]
--- OUTSIDE RECORDS SUMMARY | 2025-05-30 16:26 | XMS_ITS | Encounter Summary ---
Author Organization [facility] Address [address] [place] [address] Phone Care Team Providers Care Program Director Cable Television Name Role Phone Shanice Aguiar NP Primary Care Provid er Encounter Details Date Type Department Care Team (Late st Contact Info) Description 04/26/2025 Procedure Pass [facility] Endoscopy Admitting Dept Virtual Department [address] [place] [address] Social History Tobacco Use Types Packs/Day Years [...] on filedocumented in this encounter Care Teams Program Director Cable Television Relationship Specialty Start Date End Date Shanice Aguiar NP [address] [place] [phone] [email or web address] PCP - General Nurse Practitioner 12/17/23 documented as of this encounter Additional Source Comments The information contained in this document represents components of the legal health record. It is not the complete legal health record.[facility]
--- OUTSIDE RECORDS SUMMARY | 2025-05-30 16:26 | XMS_ITS | Clinical Summary ---
Author Organization [facility] Address [address] [place] [address] Phone Care Team Providers Care Loan Servicing Specialist Name Role Phone Shanice Aguiar NP Primary Care Provid er Allergies No known active allergies Medications budesonide-formo terol (SYMBICORT) 80-4.5 mcg/actuation inhaler 2 puffs 2 (two) times a day. Active omeprazole (PRILOSEC) 20 MG capsule Take 20 mg by mouth daily. Active therapeutic multivitamin tablet Take 1 tablet by mouth daily. Active naproxen (NAPROSYN) 500 MG tablet Take 1 tablet (500 mg total) by mouth 2 (two) times a day for 3 days. Then twice daily as needed for pain, inflammation 20 tablet 4 Active calcium carbonate/vitami n D3 (CALCIUM 500 + D ORAL) Active fluticasone propion-salmeter oL (ADVAIR DISKUS) 250-50 mcg/dose DISKUS Acti ve fluticasone propionate (FLONASE) 50 mcg/actuation nasal spray 1 spray by Each Nare route daily. Active albuterol (VENTOLIN HFA) 90 mcg/actuation inhaler Inhale 2 puffs every 4 hours by inhalation route as needed. Active cyclobenzaprine (FLEXERIL) 10 MG tablet Take 1 tablet (10 mg total) by mouth 3 (three) times a day as needed. 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 Encounters Date Type Department Care Team Description 04/26/2025 Procedure Pass [facility] Admitting Dept Virtual Department [address] [place] [address] 04/26/2025 Hospital Encounter [facility] Admitting Dept Virtual Department [address] [place] [address] Mingo De La Torre MD 04/20/2025 Telephone [facility] [address] [place] [address] Emilia Noe LPN 03/28/2025 9:08 AM EDT - 03/28/2025 11:59 PM EDT Hospital Encounter [facility] [address] [place] [address] Shanice Aguiar NP Discharge Disposition: Home or Self Care from Last 3 Months Immunizations Immunization Administration Dates Next Due INFLUENZA, SPLIT VIRUS, TRIVALENT PF 04/14/2013 INFLUENZA, SPLIT VIRUS, TRIV ALENT W/ PRESERVATIVE IM 04/26/2012,04/30/2011 Influenza Quadrivalent MDCK Preservative Free IM 04/09/2023,05/11/2020 Influenza Quadrivalent Prese rvative Free IM 04/22/2022,06/23/2019,08/04/2018,07/07,03/21/2015 Pneumococcal polysaccharide PPSV23 03/21/2015 Td (adult),2 Lf Tetanus Toxo id, PF, Adsorbed 03/21/2022 Tdap 05/26/2011 Social History Tobacco Use Types Packs/Day Years Used Date Smoking Tobacco: Never Smokeless Tobacco: Never Tobacco Cessation:Counseling Given: Not Answered Alcohol Use Standard Drinks/Week Comments Not Currently [...] Orientation Straight 07/27/2017 9: 38 AM EST Last Filed Vital Signs Vital Sign Reading Time Taken Comments Blood Pressure 168/80 07/14/2024 9:29 AM EST Pulse 63 07/14/2024 9:29 AM EST Temperature 36.6 C (97.8 F) 07/14/2024 9:29 AM EST Respiratory Rate 18 07/14/2024 9:29 AM EST Oxygen Saturation 98% 07/14/2024 9:29 AM EST Inhaled Oxygen Concentration - - Weight 100.2 kg (220 lb 14.4 oz) 03/15/2024 9:09 AM EDT Height 160 cm (5' 3 ) 03/15/2024 9:09 AM EDT Body Mass Index 39.13 03/15/2024 9:09 AM EDT Plan of Treatment Health Maintenance Due Date Last Done Comments LIPID PANEL 1977 DEPRESSION SCREENING 1989 HEPATITIS C SCREENING 1995 HIV ONE-TIME SCREENING (18-65 YEARS) 1995 PNEUMOCOCCAL VACCINES (0-49 years) (2 of 2 - PCV) 03/21/2016 03/21/2015 MAMMOGRAM 2017 SCREENING FOR DIABETES 05/25/2020 05/25/2017 COLOGUARD 2022 COLONOSCOPY 2022 COLORECTAL CANCER SCREENING 2022 FIT TEST 2022 FOBT 2022 SIGMOIDOSCOPY 2022 VIRTUAL COLONOSCOPY 2022 INFLUENZA VACCINE (#1) 2025 3, 04/22/2022, 05/25/2020, Additional history exists COVID-19 VACCINE ( season) 2025 08/21/2020, 07/31/2020 PAP SMEAR 03/28/2028 03/28/2025, 03/21/2022 Adult Td,Tdap Booster 03/21/2032 03/21/2022, 011 SMOKING STATUS SCREENING (Once After 26 Yrs) Completed 07/14/2024 HEPATITIS A VACCINES Aged Out No long er eligible based on patient's age to complete this topic HIB VACCINES Aged Out No longer eligi ble based on patient's age to complete this topic MENINGOCOCCAL VACCINES (ACWY) Aged Out No longer eligible based on patient's age to complete this topic MENINGOCOCCAL VACCINES (B) Aged Out N o longer eligible based on patient's age to complete this topic Medical Devices Not on file Procedures Procedure Name Priority Date/Time Associated Diagnosis Comments PAP TEST Routine 03/28/2025 12:00 AM EDT from Last 3 Months Results * Pap Test (03/28/2025 12:00 AM EDT) Report [address] [address] [employer]: Colin Telles MD NEUROSURGERY RESEARCH DIRECTOR Cytology Report FINAL DIAGNOSIS A. PAP SMEAR (THIN PREP) CE: SPECIMEN ADEQUACY: Satisfactory for evaluation; transformation zone present. INTERPRETATION: NEGATIVE FOR INTRAEPITHELIAL LESION OR MALIGNANCY. Due to blood, the specimen was reprocessed with 10% Glacial Acetic Acid. Electronically Signed Out By: Rosie Hay MD By his/her signature above, the pathologist listed as making the Final Diagnosis certifies that he/she has personally reviewed this case and confirmed or corrected the diagnosis. The Pap test is a screening test primarily for squamous cancers and precursors and has associated false-negative and false-positive results. New technologies such as liquid-based preparations may decrease but will not eliminate all false-negative results. Regular sampling and follow-up of unexplained clinical signs and symptoms are recommended to minimize false negative results. CLINICAL HISTORY Date of Last Menstrual Period: Not Provided Menstrual History: Unknown Other Clinical Conditions: Screening Pap SPECIMEN SOURCE A: PAP SMEAR (THIN PREP) CE Patient Name: JAMES MIJARES : 1975 (Age: 50) Sex: F Institution: [facility] Location: [facility] Date of Collection: 03/28/2025 Date of Reported: 04/04/2025 13:22 Results to: Shanice Aguiar BUSINESS PROCESS ASSOCIATE [facility] Final Diagnosis A. PAP SMEAR (THIN PREP) CE: SPECIMEN ADEQUACY: Satisfactory for evaluation; transformation zone present. INTERPRETATION: NEGATIVE FOR INTRAEPITHELIAL LESION OR MALIGNANCY. Due to blood, the specimen was reprocessed with 10% Glacial Acetic Acid. [facility] Conversion Type (Conversion Source) 03/28/2025 03/30/2025 10:50 AM EDT Shanice Aguiar HAND ASSEMBLER FOR PULLER OVER CYTOLOGY ORDERABLES Edited Result - Final [facility] [address] [place] [address] from Last [address] [place] [address] [place] [address] [place], [place] [address] [place] [place] [address] [place] [address] [place] [address] [place] [address] [place], [place] [address] [facility] HMO [employer] Care Teams Loan Servicing Specialist Relationship Specialty Start Date End Date Shanice Aguiar NP [address] [place] [phone] [email or web address] PCP - General Nurse Practitioner 12/17/23 Additional Source Comments The information contained in this document represents components of the legal health record. It is not the complete legal health record.[facility]
--- OUTSIDE RECORDS SUMMARY | 2025-05-30 16:26 | XMS_ITS | Encounter Summary ---
Author Organization [facility] Address [address] [facility] [address] [place] [address] Phone Care Team Providers Care Regional Maintenance Manager Name Role Phone Shanice Aguiar NP Primary Care Provid er Encounter Details Date Type Department Care Team (Late st Contact Info) Description 04/20/2025 Telephone [facility] [address] [place] [address] [phone] Emilia Noe LPN [address] [place] [address] [email or web address] Social History Tobacco Use Types Packs/Day Years [...] AM EST documented as of this encounter Progress Notes * Emilia Noe LPN - 04/20/2025 6:16 PM EDT Pt scheduled for 04/26/25 - needs cardiac clearance from [facility] documented in this encounter Plan of Treatment Not on file documented as of this encounter Visit Diagnoses Not on filedocumented in this encounter Care Teams Regional Maintenance Manager Relationship Specialty Start Date End Date Shanice Aguiar NP [address] [place] [phone] [email or web address] PCP - General Nurse Practitioner 12/17/23 documented as of this encounter Additional Source Comments The information contained in this document represents components of the legal health record. It is not the complete legal health record.[facility]
== END 2025-05-30 15:19 | disposition home or self-care (01) ==
LOC: HO.HCS 14:40
DX: I48.0 Paroxysmal atrial fibrillation (principal)
CPT/HCPCS: 93010; 99214; G2211

== ENCOUNTER → 2025-05-30 14:39 | Outpatient (BNVA) | payer OTHER, SELFPAY | DX: I48.0 Paroxysmal atrial fibrillation (principal) | CPT/HCPCS: 93005 ==